=== PATIENT | male | born 1975 | race Caucasian/White ===

== ENCOUNTER 2023-01-25 11:26 | Inpatient (IN) ==
[2023-01-25 12:40] LABS: Basophils # (auto) 0.04 K/uL (0-0.2); Basophils % (auto) 0.6 %; Eosinophils # (auto) 0.02 K/uL (0-0.50); Eosinophils % (auto) 0.3 %; Hematocrit (blood only) 48.7 % (42.0-52.0); Hemoglobin 17.5 g/dl (14.0-18.0); Immature Granulocytes # (auto) 0.03 K/uL (0.01-0.20); Immature Granulocytes % (auto) 0.5 %; Lymphocytes % (auto) 22.4 %; Mean Corpuscular Hemoglobin 32.8 pg (25.0-34.0); Mean Corpuscular Hgb Conc 35.9 g/dL (32.0-36.0); Mean Corpuscular Volume 91.2 fL (80.0-100.0); Mean Platelet Volume 9.3 fL (9.4-12.4); Monocytes # (auto) 1.92 K/uL (0.11-0.59); Monocytes % (auto) 30.7 %; Neutrophils # (auto) 2.84 K/uL (1.40-6.50); Neutrophils % (auto) 45.5 %; Platelet Count 355 K/uL (130-400); RDW Coefficient of Variation 11.9 % (11.5-14.5); Red Blood Count 5.34 M/uL (4.70-6.10); White Blood Count 6.25 K/ul (4.8-10.8)
[2023-01-25 13:14] LABS: Albumin Globulin Ratio 1.2 (0.9-2); Albumin Level 4.1 gm/dl (3.4-5.0); BUN Creatinine Ratio 13.8 (10-20); Bilirubin,Total 0.9 mg/dl (0.2-1.0); Calcium 10.3 mg/dl (8.6-10.3); Creatinine Clr Calc Pharmacy 78.4 ml/min; Est GFR (African American) 94.5 ml/min; Est GFR (Non-African American) 81.5 ml/min; Globulin 3.3 gm/dl (2.5-4.0); Potassium 2.7 mmol/L (3.5-5.1); Total Protein 7.4 gm/dl (6.0-8.3)
[2023-01-25 13:15] LABS: Lyme Ab IgG w/WB Rflx Negative (Negative); Lyme Ab IgM w/WB Rflx Negative (Negative)
--- NOTE | 2023-01-25 13:33 | Electrocardiogram Report ---
Test Reason : Blood Pressure : / mmHG Vent. Rate : 103 BPM Atrial Rate : 103 BPM P-R Int : 144 ms QRS Dur : 098 ms QT Int : 358 ms P-R-T Axes : 079 072 -61 degrees QTc Int : 468 ms Poor data quality, interpretation may be adversely affected Sinus tachycardia Right atrial enlargement Abnormal ECG No previous ECGs available Confirmed by Adrien Hankins ([id number]) on 01/25/2023 1:32:55 PM Referred By: Confirmed By:Adrien Hankins
[2023-01-25] MEDS ORDERED: SODIUM CHLORIDE 0.9% 1000ML 1,000 ML IV ONE (14:56)
[2023-01-25] MEDS ORDERED: POTASSIUM CHLORIDE CRTAB 20 MEQ TABCR PO STA (15:02)
--- NOTE | 2023-01-25 15:11 | Emergency Department Note ---
Impression & Plan Rhabdomyolysis ADMIT ED Provider Note HPI: The patient is a 47-year-old gentleman who presents emergency department with multiple issues. Patient states he has had some dizziness, states it is relatively constant over the past several days with positional changes. Patient also states that he has had some muscle spasms/cramps in the posterior aspect of both eyes, right greater than left. Patient denies any chest pain or shortness of breath, states that he had a recent GI illness that was associate with some nausea and vomiting and diarrhea last week, his symptoms resolved. He went to see a physician through [facility] in [place], he had lab work done and was ultimately discharged following his outpatient visit. He was called today and told to come to the ER because he had "lab abnormalities". On arrival here to the ED the patient is mildly tachycardic but otherwise in no acute distress. He complains of some generalized sensation of dizziness and some muscle cramps in his posterior legs. Patient denies any recent fever, denies any headache, denies any chest pain or shortness of breath. Patient is afebrile on arrival. Saturating well on room air. ROS: - Per HPI *Outpatient medications and allergy history reviewed. *Pertinent external medical records reviewed. PE: General: Alert, thin build, no acute distress HEENT: Normocephalic, trachea midline Eyes: Extraocular eye movement is intact, no scleral erythema Pulmonary: Clear to auscultation bilaterally, no wheezing Cardio: Regular rate and rhythm GI: Abdomen is soft to palpation : No suprapubic tenderness MSK: No evidence of trauma or malformation of the extremities, no edema Skin: No evidence of rash Neuro: Alert, no focal deficits Psychiatric: Cooperative prize fighter: (As interpreted by myself): - An order was placed for continuous cardiac monitoring - Patient was noted to be in sinus rhythm with a rate of 90 EKG: (As interpreted by myself): Rate: 103 Rhythm: Sinus tachycardia Intervals: Within normal limits ST changes: No ST elevation Time: 1222 Interventions provided in ED: -IV fluid bolus, IV potassium repletion Differential Diagnosis: Posterior circulation stroke, peripheral vertigo, rhabdomyolysis, tickborne illness, viral hepatitis, alcohol induced hepatitis, malnutrition secondary to history of alcohol abuse, amongst other potential pathologies. Medical Decision Making: Patient presented to the emergency department with a chief complaint of multiple symptoms that have been acute and bothersome of recent past. Patient states he has had some dizziness with positional changes, states he has bilateral myalgias in his legs. Denies any recent strenuous physical activity. Patient states he recently did have a GI illness as well. On arrival here to the ED the patient is hemodynamically stable. He states he was contacted in regards to some lab work he had done yesterday at the [facility] location and was told to come to the emergency department to be assessed. Upon review of outpatient lab work patient had a transaminitis and hyponatremia yesterday. On arrival here today his lab work shows similar changes with AST in the 500s, ALT 181, creatinine kinase was added given the patient's myalgias in the bilateral lower extremities and total CK level is elevated at 35,902, troponin also slightly elevated at 22.3. EKG does not show any ST elevation, there are some mild depressions in the lateral leads however patient denies any chest pain or shortness of breath. Low suspicion for ACS at this time. Patient CBC shows no evidence of leukocytosis, hemoglobin is stable, BMP otherwise shows evidence of a metabolic alkalosis, potassium low at 2.7, sodium slightly low 131 and chloride low at 80. Lyme testing and Anaplasma testing are negative. Alcohol level is negative. CT imaging of the head was obtained given the patient's complaint of dizziness, this does not show any acute intracranial process. CT imaging of the abdomen pelvis does not show any evidence of acute surgical abnormality. Possible cystitis however urinalysis does not show evidence of infection. Given the patient's multiple lab abnormalities he was aggressively fluid resuscitated with 3 L of normal saline, also given potassium repletion. I did recommend admission and patient is in agreement. Case was discussed with the on-call hospitalist for [facility], Dr. Atkins, patient was placed for admission in stable condition. Consultants: Hospitalist service, Dr. Atkins Disposition discussion held by myself with: Patient and family member at the bedside Diagnosis: 1. Acute rhabdomyolysis 2. Transaminitis 3. Elevated troponin 4. Hypokalemia 5. Hyponatremia 6. Hypochloremia 7. Metabolic alkalosis Disposition: Admission Aaron Alexandra, DO Emergency Medicine Past Med/Surg History Social History Smoking Status: Current some day smoker Preferred Language: Georgian Feels Safe at Home: Yes Allergies Allergies Allergy/AdvReac Type Severity Reaction Status Date / Time No Known Allergies Allergy Verified 01/25/23 16:49 Home Meds Home Medications Medication Instructions Recorded Confirmed meclizine 25 mg tablet 25 mg PO Q8H PRN Dizziness 01/25/23 01/25/23 Results & Data (ED) Vital Signs Vital Signs - 24 hr 01/25/23 11:46 01/25/23 15:48 01/25/23 14:31 Temperature 36.6 C Temperature Source Temporal Artery Scan Pulse Rate 112 H 90 Pulse Rate from SpO2 Sensor Respiratory Rate 18 Blood Pressure 111/80 137/84 Blood Pressure Mean 90 101 Pulse Oximetry 98 Sepsis Recent Fever Within 48 Hours No Sepsis New/Unexplained Change in Mental Status N/A Sepsis Action Taken by Nursing No Action Required 01/25/23 14:31 01/25/23 15:00 01/25/23 15:00 Temperature Temperature Source Pulse Rate 98 H 96 H Pulse Rate from SpO2 Sensor 97 H 95 H Respiratory Rate 18 15 Blood Pressure 133/97 Blood Pressure Mean 109 Pulse Oximetry 99 98 Sepsis Recent Fever Within 48 Hours Sepsis New/Unexplained Change in Mental Status Sepsis Action Taken by Nursing 01/25/23 15:30 01/25/23 15:30 01/25/23 16:00 Temperature Temperature Source Pulse Rate 91 H Pulse Rate from SpO2 Sensor Respiratory Rate 19 Blood Pressure 130/99 123/97 Blood Pressure Mean 109 105 Pulse Oximetry Sepsis Recent Fever Within 48 Hours Sepsis New/Unexplained Change in Mental Status Sepsis Action Taken by Nursing 01/25/23 16:00 01/25/23 16:30 Temperature Temperature Source Pulse Rate 93 H 85 Pulse Rate from SpO2 Sensor Respiratory Rate 13 22 Blood Pressure Blood Pressure Mean Pulse Oximetry Sepsis Recent Fever Within 48 Hours Sepsis New/Unexplained Change in Mental Status Sepsis Action Taken by Nursing Laboratory Data 01/25/23 12:20 01/25/23 12:20 Lab Results 01/25/23 01/25/23 01/25/23 Range/Units 12:20 12:20 12:20 WBC 6.25 (4.8-10.8) K/ul RBC 5.34 (4.70-6.10) M/uL Hgb 17.5 (14.0-18.0) g/dl Hct 48.7 (42.0-52.0) % MCV 91.2 (80.0-100.0) fL MCH 32.8 (25.0-34.0) pg MCHC 35.9 (32.0-36.0) g/dL RDW Std Deviation 40.0 (36.4-46.3) fL RDW Coeff of Dede 11.9 (11.5-14.5) % Plt Count 355 (130-400) K/uL MPV 9.3 L (9.4-12.4) fL Immature Gran % (Auto) 0.5 % Neut % (Auto) 45.5 % Lymph % (Auto) 22.4 % Canadian % (Auto) 30.7 % Eos % (Auto) 0.3 % Baso % (Auto) 0.6 % Neut # (Auto) 2.84 (1.40-6.50) K/uL Lymph # (Auto) 1.40 (1.2-3.4) K/uL Canadian # (Auto) 1.92 H (0.11-0.59) K/uL Eos # (Auto) 0.02 (0-0.50) K/uL Baso # (Auto) 0.04 (0-0.2) K/uL Immature Gran # (Auto) 0.03 (0.01-0.20) K/uL VBG pH (7.36-7.41) VBG pCO2 (38-50) mmHg VBG pO2 mmHg VBG HCO3 mmol/L VBG O2 Saturation % VBG Base Excess mEq/L Sodium 131 L (136-145) mmol/L Potassium 2.7 L (3.5-5.1) mmol/L Chloride 80 L (98-107) mmol/L Carbon Dioxide 41 H* (21-32) mmol/L Anion Gap 10 (3-11) BUN 15 (6-23) mg/dl Creatinine 1.09 (0.6-1.4) mg/dl Est Cr Clr Drug Dosing 78.4 ml/min Est GFR ( Amer) 94.5 ml/min Est GFR (Non-Af Amer) 81.5 ml/min BUN/Creatinine Ratio 13.8 (10-20) Glucose 112 H (70-99(Fasting)) mg/dl Lactate (0.4-2.0) mmol/L Calcium 10.3 (8.6-10.3) mg/dl Magnesium (1.7-2.4) mg/dl Total Bilirubin 0.9 (0.2-1.0) mg/dl AST 548 H (13-39) U/L ALT 181 H (7-52) U/L Alkaline Phosphatase 74 (34-104) U/L Total Creatine Kinase (30-223) U/L Troponin I High Sens (0-20) pg/ml Total Protein 7.4 (6.0-8.3) gm/dl Albumin 4.1 (3.4-5.0) gm/dl Globulin 3.3 (2.5-4.0) gm/dl Albumin/Globulin Ratio 1.2 (0.9-2) Urine Color Urine Appearance (Clear) Urine pH (4.5-7.5) Ur Specific [place] (1.000-1.030) Urine Protein (Negative) Urine Glucose (UA) (Negative) Urine Ketones (Negative) Urine Blood (Negative) Urine Nitrite (Negative) Urine Bilirubin (Negative) Urine Urobilinogen (Negative) Ur Leukocyte Esterase (Negative) Urine WBC (Auto) (0-5) /hpf Urine RBC (Auto) (0-4) /hpf U Hyaline Cast (Auto) (0-5) /lpf U Epithel Cells (Auto) (0-5) /lpf Urine Bacteria (Auto) (Negative) Ethyl Alcohol mg/dL (<10.0) mg/dl Anaplasma Smear Babesia Smear Lyme Disease IgG Ab Negative (Negative) Lyme Disease IgM Ab Negative (Negative) 01/25/23 01/25/23 01/25/23 Range/Units 14:56 15:01 15:01 WBC (4.8-10.8) K/ul RBC (4.70-6.10) M/uL Hgb (14.0-18.0) g/dl Hct (42.0-52.0) % MCV (80.0-100.0) fL MCH (25.0-34.0) pg MCHC (32.0-36.0) g/dL RDW Std Deviation (36.4-46.3) fL RDW Coeff of Dede (11.5-14.5) % Plt Count (130-400) K/uL MPV (9.4-12.4) fL Immature Gran % (Auto) % Neut % (Auto) % Lymph % (Auto) % Canadian % (Auto) % Eos % (Auto) % Baso % (Auto) % Neut # (Auto) (1.40-6.50) K/uL Lymph # (Auto) (1.2-3.4) K/uL Canadian # (Auto) (0.11-0.59) K/uL Eos # (Auto) (0-0.50) K/uL Baso # (Auto) (0-0.2) K/uL Immature Gran # (Auto) (0.01-0.20) K/uL VBG pH 7.49 H (7.36-7.41) VBG pCO2 62 H (38-50) mmHg VBG pO2 13 mmHg VBG HCO3 47 mmol/L VBG O2 Saturation < 60.0 % VBG Base Excess 20.1 mEq/L Sodium (136-145) mmol/L Potassium (3.5-5.1) mmol/L Chloride (98-107) mmol/L Carbon Dioxide (21-32) mmol/L Anion Gap (3-11) BUN (6-23) mg/dl Creatinine (0.6-1.4) mg/dl Est Cr Clr Drug Dosing ml/min Est GFR ( Amer) ml/min Est GFR (Non-Af Amer) ml/min BUN/Creatinine Ratio (10-20) Glucose (70-99(Fasting)) mg/dl Lactate 1.9 (0.4-2.0) mmol/L Calcium (8.6-10.3) mg/dl Magnesium 2.4 (1.7-2.4) mg/dl Total Bilirubin (0.2-1.0) mg/dl AST (13-39) U/L ALT (7-52) U/L Alkaline Phosphatase (34-104) U/L Total Creatine Kinase 77582 H (30-223) U/L Troponin I High Sens 22.3 H (0-20) pg/ml Total Protein (6.0-8.3) gm/dl Albumin (3.4-5.0) gm/dl Globulin (2.5-4.0) gm/dl Albumin/Globulin Ratio (0.9-2) Urine Color Urine Appearance (Clear) Urine pH (4.5-7.5) Ur Specific [place] (1.000-1.030) Urine Protein (Negative) Urine Glucose (UA) (Negative) Urine Ketones (Negative) Urine Blood (Negative) Urine Nitrite (Negative) Urine Bilirubin (Negative) Urine Urobilinogen (Negative) Ur Leukocyte Esterase (Negative) Urine WBC (Auto) (0-5) /hpf Urine RBC (Auto) (0-4) /hpf U Hyaline Cast (Auto) (0-5) /lpf U Epithel Cells (Auto) (0-5) /lpf Urine Bacteria (Auto) (Negative) Ethyl Alcohol mg/dL (<10.0) mg/dl Anaplasma Smear Babesia Smear Lyme Disease IgG Ab (Negative) Lyme Disease IgM Ab (Negative) 01/25/23 01/25/23 01/25/23 Range/Units 15:01 15:01 15:01 WBC (4.8-10.8) K/ul RBC (4.70-6.10) M/uL Hgb (14.0-18.0) g/dl Hct (42.0-52.0) % MCV (80.0-100.0) fL MCH (25.0-34.0) pg MCHC (32.0-36.0) g/dL RDW Std Deviation (36.4-46.3) fL RDW Coeff of Dede (11.5-14.5) % Plt Count (130-400) K/uL MPV (9.4-12.4) fL Immature Gran % (Auto) % Neut % (Auto) % Lymph % (Auto) % Canadian % (Auto) % Eos % (Auto) % Baso % (Auto) % Neut # (Auto) (1.40-6.50) K/uL Lymph # (Auto) (1.2-3.4) K/uL Canadian # (Auto) (0.11-0.59) K/uL Eos # (Auto) (0-0.50) K/uL Baso # (Auto) (0-0.2) K/uL Immature Gran # (Auto) (0.01-0.20) K/uL VBG pH (7.36-7.41) VBG pCO2 (38-50) mmHg VBG pO2 mmHg VBG HCO3 mmol/L VBG O2 Saturation % VBG Base Excess mEq/L Sodium (136-145) mmol/L Potassium (3.5-5.1) mmol/L Chloride (98-107) mmol/L Carbon Dioxide (21-32) mmol/L Anion Gap (3-11) BUN (6-23) mg/dl Creatinine (0.6-1.4) mg/dl Est Cr Clr Drug Dosing ml/min Est GFR ( Amer) ml/min Est GFR (Non-Af Amer) ml/min BUN/Creatinine Ratio (10-20) Glucose (70-99(Fasting)) mg/dl Lactate (0.4-2.0) mmol/L Calcium (8.6-10.3) mg/dl Magnesium (1.7-2.4) mg/dl Total Bilirubin (0.2-1.0) mg/dl AST (13-39) U/L ALT (7-52) U/L Alkaline Phosphatase (34-104) U/L Total Creatine Kinase (30-223) U/L Troponin I High Sens (0-20) pg/ml Total Protein (6.0-8.3) gm/dl Albumin (3.4-5.0) gm/dl Globulin (2.5-4.0) gm/dl Albumin/Globulin Ratio (0.9-2) Urine Color Urine Appearance (Clear) Urine pH (4.5-7.5) Ur Specific [place] (1.000-1.030) Urine Protein (Negative) Urine Glucose (UA) (Negative) Urine Ketones (Negative) Urine Blood (Negative) Urine Nitrite (Negative) Urine Bilirubin (Negative) Urine Urobilinogen (Negative) Ur Leukocyte Esterase (Negative) Urine WBC (Auto) (0-5) /hpf Urine RBC (Auto) (0-4) /hpf U Hyaline Cast (Auto) (0-5) /lpf U Epithel Cells (Auto) (0-5) /lpf Urine Bacteria (Auto) (Negative) Ethyl Alcohol mg/dL < 10.0 (<10.0) mg/dl Anaplasma Smear See Comment Cancelled Babesia Smear See Comment Lyme Disease IgG Ab (Negative) Lyme Disease IgM Ab (Negative) 01/25/23 Range/Units 16:25 WBC (4.8-10.8) K/ul RBC (4.70-6.10) M/uL Hgb (14.0-18.0) g/dl Hct (42.0-52.0) % MCV (80.0-100.0) fL MCH (25.0-34.0) pg MCHC (32.0-36.0) g/dL RDW Std Deviation (36.4-46.3) fL RDW Coeff of Dede (11.5-14.5) % Plt Count (130-400) K/uL MPV (9.4-12.4) fL Immature Gran % (Auto) % Neut % (Auto) % Lymph % (Auto) % Canadian % (Auto) % Eos % (Auto) % Baso % (Auto) % Neut # (Auto) (1.40-6.50) K/uL Lymph # (Auto) (1.2-3.4) K/uL Canadian # (Auto) (0.11-0.59) K/uL Eos # (Auto) (0-0.50) K/uL Baso # (Auto) (0-0.2) K/uL Immature Gran # (Auto) (0.01-0.20) K/uL VBG pH (7.36-7.41) VBG pCO2 (38-50) mmHg VBG pO2 mmHg VBG HCO3 mmol/L VBG O2 Saturation % VBG Base Excess mEq/L Sodium (136-145) mmol/L Potassium (3.5-5.1) mmol/L Chloride (98-107) mmol/L Carbon Dioxide (21-32) mmol/L Anion Gap (3-11) BUN (6-23) mg/dl Creatinine (0.6-1.4) mg/dl Est Cr Clr Drug Dosing ml/min Est GFR ( Amer) ml/min Est GFR (Non-Af Amer) ml/min BUN/Creatinine Ratio (10-20) Glucose (70-99(Fasting)) mg/dl Lactate (0.4-2.0) mmol/L Calcium (8.6-10.3) mg/dl Magnesium (1.7-2.4) mg/dl Total Bilirubin (0.2-1.0) mg/dl AST (13-39) U/L ALT (7-52) U/L Alkaline Phosphatase (34-104) U/L Total Creatine Kinase (30-223) U/L Troponin I High Sens (0-20) pg/ml Total Protein (6.0-8.3) gm/dl Albumin (3.4-5.0) gm/dl Globulin (2.5-4.0) gm/dl Albumin/Globulin Ratio (0.9-2) Urine Color Yellow Urine Appearance Clear (Clear) Urine pH 7.0 (4.5-7.5) Ur Specific [place] 1.029 (1.000-1.030) Urine Protein 1+ H (Negative) Urine Glucose (UA) Negative (Negative) Urine Ketones Negative (Negative) Urine Blood 1+ H (Negative) Urine Nitrite Negative (Negative) Urine Bilirubin Negative (Negative) Urine Urobilinogen Negative (Negative) Ur Leukocyte Esterase Negative (Negative) Urine WBC (Auto) 1-5 (0-5) /hpf Urine RBC (Auto) 0-4 (0-4) /hpf U Hyaline Cast (Auto) 1-5 (0-5) /lpf U Epithel Cells (Auto) 10-20 H (0-5) /lpf Urine Bacteria (Auto) Negative (Negative) Ethyl Alcohol mg/dL (<10.0) mg/dl Anaplasma Smear Babesia Smear Lyme Disease IgG Ab (Negative) Lyme Disease IgM Ab (Negative) Administered Medications Discontinued Medications Sodium Chloride (Nss 1000ml) 1,000 mls @ 999 mls/hr IV .Q1H1M ONE Stop: 01/25/23 15:56 Last Admin: 01/25/23 15:14 Dose: 999 mls/hr Documented By: NAHUN Potassium Chloride (K Jean / Wtr) 10 meq in 100 mls @ 100 mls/hr IV Q1H THIERNO; Protocol Stop: 01/25/23 17:14 Last Admin: 01/25/23 16:39 Dose: 100 mls/hr Documented By: Infusion: 01/25/23 16:14 Dose: 100 mls/hr Documented By: Admin: 01/25/23 15:14 Dose: 100 mls/hr Documented By: NAHUN Ioversol (Optiray 350 100ml) 86 ml IV ONCE ONE Stop: 01/25/23 16:16 Last Admin: 01/25/23 16:15 Dose: 86 ml Documented By: HELEN Potassium Chloride (Potassium Chloride Crtab 20 Meq Tabcr) 40 meq PO NOW STA Stop: 01/25/23 15:03 Last Admin: 01/25/23 15:14 Dose: 40 meq Documented By: JY Imaging Data Radiologist's Impression: Chest X-Ray 01/25/23 14:55 XR chest 1V portable CLINICAL HISTORY: weakness TECHNIQUE: Single frontal radiograph of the chest was obtained. Comparison: None available at the time of this dictation. FINDINGS: No lines and tubes are seen. The cardiomediastinal silhouette is normal. The lungs are clear. No evidence of pleural effusion or pneumothorax. IMPRESSION: No acute chest disease. ACT 112: Negative or not required by law. Electronically signed by: Juve Porter M.D. 01/25/2023 3:[address] 01/25/23 14:[address] DOSE: 729.78 mGycm HISTORY: dizzy TECHNIQUE: Multiaxial CT images of the head were performed without the use of intravenous contrast. Automated exposure control was utilized for this study. A dose lowering technique was utilized adhering to the principles of ALARA. Comparison: None. Findings: The paranasal sinuses and mastoid air cells are clear. The calvarium and skull base are intact. The ventricles and sulci are within normal limits. There is no mass, hematoma, midline shift, or acute infarct. Impression: No acute intracranial abnormality. ACT 112: Negative or not required by law. Electronically signed by: Fernando Montoya M.D. 01/25/2023 4:20 PM Abdomen/Pelvis CT 01/25/23 15:07 CT abd pelvis IV con only CLINICAL HISTORY: transaminitis, recent N/V TECHNIQUE: Helical axial images of the abdomen and pelvis were obtained and displayed. Automated dose lowering techniques and/or adjustment according to patient size were utilized for this exam. This exam was performed with intravenous contrast. CT DOSE: 511.13 mGycm COMPARISON: None available at the time of this dictation. FINDINGS: Lower chest: No acute abnormality. Liver: Unremarkable. No focal lesions are seen. Gallbladder and biliary tree: No calcified gallstones. Normal caliber wall. There may be a gallbladder polyp measuring approximately 4 mm. No intra- or extrahepatic biliary ductal dilation. Pancreas: Unremarkable, no focal lesions. Spleen: Unremarkable. Adrenals: Unremarkable. Kidneys and ureters: Unremarkable. Bladder: Diffuse homogeneous wall thickening is seen. Reproductive organs: Unremarkable. Bowel: The appendix is normal. Lymph nodes Retroperitoneal: Unremarkable. Pelvic: Unremarkable. Mesenteric: Unremarkable. Peritoneum: Normal. Vessels: Atherosclerotic calcifications are seen. Abdominal wall: Unremarkable. Bones: Mild degenerative changes are seen. IMPRESSION: Diffuse thickening of the bladder wall is nonspecific, however correlation with urinalysis is recommended to exclude UTI. Otherwise no acute abnormalities are seen. ACT 112: Negative or not required by law. Electronically signed by: Juve Porter M.D. 01/25/2023 4:25 PM Discharge Plan Visit Data Chief Complaint: Abnormal Labs/Diagnostic Testing Stated Complaint: ABNORMAL BLOODWORK, REFERRED BY DOCTOR ED Provider: Aaron Alexandra ED Midlevel Provider: [place] Discharge Problem: Rhabdomyolysis Forms Stand Alone Forms: [employer] Prescriptions Prescriptions: No Action meclizine 25 mg Tablet 25 mg PO Q8H PRN (Reason: Dizziness) Referrals Referrals: Debra Figueredo MD [Primary Care Provider] - Rhabdomyolysis Qualifiers: Rhabdomyolysis type: non-traumatic Qualified Code(s): M62.82 - Rhabdomyolysis
[2023-01-25] MEDS: POTASSIUM CHLORIDE / WTR 10 MEQ/100 ML PLCT IV SCH ×4 (15:14→23:53)
[2023-01-25 15:15] LABS: Base Excess VBG 20.1 mEq/L; HCO3 VBG 47 mmol/L; Oxygen Saturation VBG < 60.0 %; PCO2 VBG 62 mmHg (38-50); PO2 VBG 13 mmHg; pH VBG 7.49 (7.36-7.41)
--- NOTE | 2023-01-25 15:31 | XRay Report ---
XR chest 1V portable CLINICAL HISTORY: weakness TECHNIQUE: Single frontal radiograph of the chest was obtained. Comparison: None available at the time of this dictation. FINDINGS: No lines and tubes are seen. The cardiomediastinal silhouette is normal. The lungs are clear. No evid ence of pleural effusion or pneumothorax. IMPRESSION: No acute chest disease. ACT 112: Negative or not required by law. Electronically signed by: Juve Porter M.D. 01/25/2023 3:29 PM
[2023-01-25 15:42] LABS: Troponin I High Sensitivity 22.3 pg/ml (0-20)
[2023-01-25 15:49] LABS: Magnesium 2.4 mg/dl (1.7-2.4)
--- NOTE | 2023-01-25 16:01 | Communication Note ---
Date of Service: January 25, 2023 Resident attestation for ED patient. I saw this patient today and discussed my findings w/ Dr. Alexandra who has examined the patient independently. Please see his documentation.
[2023-01-25] MEDS ORDERED: OPTIRAY 350 100ml IV ONE (16:15)
--- NOTE | 2023-01-25 16:21 | CT Scan Report ---
HEAD CT NONCONTRAST CT DOSE: 729.78 mGycm HISTORY: dizzy TECHNIQUE: Multiaxial CT images of the head were performed without the use of intravenous contrast. A utomated exposure control was utilized for this study. A dose lowering technique was utilized adheri ng to the principles of ALARA. Comparison: None. Findings: The paranasal sinuses and mastoid air cells are clear. The calvarium and skull base are int act. The ventricles and sulci are within normal limits. There is no mass, hematoma, midline shift, or acute infarct. Impression: No acute intracranial abnormality. ACT 112: Negative or not required by law. Electronically signed by: Fernando Montoya M.D. 01/25/2023 4:20 PM
--- NOTE | 2023-01-25 16:27 | CT Scan Report ---
CT abd pelvis IV con only CLINICAL HISTORY: transaminitis, recent N/V TECHNIQUE: Helical axial images of the abdomen and pelvis were obtained and displayed. Automated dose lowering techniques and/or adjustment according to patient size were utilized for this exam. This e xam was performed with intravenous contrast. CT DOSE: 511.13 mGycm COMPARISON: None available at the time of this dictation. FINDINGS: Lower chest: No acute abnormality. Liver: Unremarkable. No focal lesions are seen. Gallbladder and biliary tree: No calcified gallstones. Normal caliber wall. There may be a gallbladde r polyp measuring approximately 4 mm. No intra- or extrahepatic biliary ductal dilation. Pancreas: Unremarkable, no focal lesions. Spleen: Unremarkable. Adrenals: Unremarkable. Kidneys and ureters: Unremarkable. Bladder: Diffuse homogeneous wall thickening is seen. Reproductive organs: Unremarkable. Bowel: The appendix is normal. Lymph nodes Retroperitoneal: Unremarkable. Pelvic: Unremarkable. Mesenteric: Unremarkable. Peritoneum: Normal. Vessels: Atherosclerotic calcifications are seen. Abdominal wall: Unremarkable. Bones: Mild degenerative changes are seen. IMPRESSION: Diffuse thickening of the bladder wall is nonspecific, however correlation with urinalysis is recomme nded to exclude UTI. Otherwise no acute abnormalities are seen. ACT 112: Negative or not required by law. Electronically signed by: Juve Porter M.D. 01/25/2023 4:25 PM
[2023-01-25 16:50] LABS: Appearance Urine Clear (Clear); Bacteria Urine Automated Negative (Negative); Bilirubin Urine Negative (Negative); Blood Urine 1+ (Negative); Color Urine Yellow; Glucose Urine UA Negative (Negative); Ketones Urine Negative (Negative); Leukocyte Esterase Urine Negative (Negative); Nitrite Urine Negative (Negative); Protein Urine 1+ (Negative); RBC Urine Automated 0-4 /hpf (0-4); Specific Gravity Urine 1.029 (1.000-1.030); Urobilinogen Urine Negative (Negative)
[2023-01-25] MEDS ORDERED: SODIUM CHLORIDE 0.9% 1000ML 2,000 ML IV ONE (16:51)
[2023-01-25 17:58] LABS: Influenza A virus by PCR Negative (Neg); Influenza B virus by PCR Negative (Neg); RSV by PCR Negative (Neg); SARS CoV2 RNA(COVID-19) Ceph NEGATIVE (Negative)
--- NOTE | 2023-01-25 19:36 | History & Physical Report ---
Date of Service January 25, 2023 Assessment & Plan (1) Metabolic alkalosis: (2) Rhabdomyolysis: (3) Alcohol abuse: (4) Transaminitis: (5) Elevated troponin: (6) Dizziness: Plan Metabolic alkalosis with hx of N/V and diarrhea + Electrolytes abnormalities: -CT abd: Unremarkable but diffuse thickening of bladder wall ---- pt denied any urinary symptoms and neg UA -2/2 severe vomiting -pts Na+ is better than yesterday (it was 128) -pt received 2L of NS bolus - will keep pt on 150 cc NS/hr for now -will replete K+ -repeat CMP alex and admit to tele due to electrolytes abnormalities Rhabdomyolysis: -no exam no sign of any extremities swelling -likely 2/2 severe dehydration from GI symptoms + decrease PO intake + excess ETOH use -received IVF and will do maintenance fluids -repeat CK tomorrow AM ETOH abuse with Transaminitis: -normal ABd exam -no sign of pancreatitis on CT -will do ETOH withdrawal protocol ---- even though last intake per pt was 6 days ago -AST and ALT are better compared to yesterday lab ---AST: 827>548 and ALT: 207 > 181 -will trend LFTs -Tick borne disease panel neg -will get UDS and Hepatitis panel Elevated trop: -no prior hx of ND -EKG: sinus tachy, possible TWI on lead III, aVF, ---- will trend trop and EKG AM and Echo -no need for Cardiology consult at this time Dizziness: -worse with ambulation -normal neuro exam -likely 2/2 hypoNa+ and orthostatic hypotension -CT head: no acute finding -if symptoms do not improve with electrolytes correction and hydration then will consider MRI brain and neurology consult Diet: Clear liquid diet for now DVT PPx: Lovenox Code Status: FULL CODE Emergency Contact: Mother- Ana Paula [phone] History of Present Illness Chief Complaint: transaminitis Primary Care Provider: Debra Figueredo MD Pt is a 47 y/o M with hx of Alcohol abuse came to the ER with dizziness (with standing and walking), b/l thigh pain (with movement) for 3 days. Per pt he had severe episodes of nausea, vomiting, and diarrhea for 3 days which resolved 4 days ago. Per pt he has 20 episodes of vomiting (NBNB). At bedside: pt denied any abd pain, CP, SOB, blurry vision or PAIGE. Pt does drink 10 beers/day (on avg) and last drank 6 days ago. Pt uses marijuana infrequently but denied any other illicit drug use. Allergies Allergy/AdvReac Type Severity Reaction Status Date / Time No Known Allergies Allergy Verified 01/25/23 16:49 Home Medications Medication Instructions Recorded Confirmed Type meclizine 25 mg tablet 25 mg PO Q8H PRN Dizziness 01/25/23 01/25/23 History Past Med/Surg History Medical History Alcohol abuse Surgical History (Updated 01/25/23 @ 19:38 by Dmitry Atkins MD) H/O eye surgery Family History (Updated 01/25/23 @ 19:38 by Dmitry Atkins MD) Other Diabetes Hypertension Social History (Updated 01/25/23 @ 19:38 by Dmitry Atkins MD) Smoking Status: Current some day smoker Hx Alcohol Use: Yes Hx Substance Use: Yes Preferred Language: Turkmen Feels Safe at Home: Yes Review of Systems Review of Systems: At least 10 Review of systems were reviewed and all negative except as indicated in HPI Physical Exam Physical Exam: General:. NAD, well developed, well nourished, average body habitus HEENT:. Normocephalic and atraumatic, Normal Conjunctiva, EOMI, Sclera is non- icteric Lungs:. No signs of respiratory distress, CTA, no wheezing or crackles Heart:. Normal S1, S2, no murmur Abdominal:. ND, Soft, NT MSK:. No deformities of UE and LE, No leg edema Neuro: CN II-XII intact, normal motor strength, PERRLA Psych:. AAOx3, normal affect Results & Data Results & Data Vital Signs (Past 12 Hours) Vital Signs Temp Pulse Resp BP Pulse Ox 01/25/23 19:00 67 18 154/101 H 01/25/23 16:30 85 22 01/25/23 16:00 93 H 13 01/25/23 16:00 123/97 01/25/23 15:30 91 H 19 01/25/23 15:30 130/99 01/25/23 15:00 96 H 15 98 01/25/23 15:00 133/97 01/25/23 14:31 98 H 18 99 01/25/23 14:31 137/84 01/25/23 15:48 90 01/25/23 11:46 36.6 C 112 H 18 111/80 98 Laboratory Results Short CBC 01/25/23 Range/Units 12:20 WBC 6.25 (4.8-10.8) K/ul Hgb 17.5 (14.0-18.0) g/dl Hct 48.7 (42.0-52.0) % Plt Count 355 (130-400) K/uL BMP 01/25/23 12:20 Sodium 131 L Potassium 2.7 L Chloride 80 L Carbon Dioxide 41 H* BUN 15 Creatinine 1.09 Glucose 112 H Calcium 10.3 Cardiac Enzymes 01/25/23 Range/Units 15:01 Total Creatine Kinase 76134 H (30-223) U/L Liver Function 01/25/23 Range/Units 12:20 Total Bilirubin 0.9 (0.2-1.0) mg/dl AST 548 H (13-39) U/L ALT 181 H (7-52) U/L Alkaline Phosphatase 74 (34-104) U/L Albumin 4.1 (3.4-5.0) gm/dl Urine 01/25/23 Range/Units 16:25 Urine Color Yellow Urine Appearance Clear (Clear) Urine pH 7.0 (4.5-7.5) Ur Specific [place] 1.029 (1.000-1.030) Urine Protein 1+ H (Negative) Urine Glucose (UA) Negative (Negative) Diagnostic Findings Chest X-Ray 01/25/23 14:55 XR chest 1V portable CLINICAL HISTORY: weakness TECHNIQUE: Single frontal radiograph of the chest was obtained. Comparison: None available at the time of this dictation. FINDINGS: No lines and tubes are seen. The cardiomediastinal silhouette is normal. The lungs are clear. No evidence of pleural effusion or pneumothorax. IMPRESSION: No acute chest disease. ACT 112: Negative or not required by law. Electronically signed by: Juve Porter M.D. 01/25/2023 3:[address] 01/25/23 14:[address] DOSE: 729.78 mGycm HISTORY: dizzy TECHNIQUE: Multiaxial CT images of the head were performed without the use of intravenous contrast. Automated exposure control was utilized for this study. A dose lowering technique was utilized adhering to the principles of ALARA. Comparison: None. Findings: The paranasal sinuses and mastoid air cells are clear. The calvarium and skull base are intact. The ventricles and sulci are within normal limits. There is no mass, hematoma, midline shift, or acute infarct. Impression: No acute intracranial abnormality. ACT 112: Negative or not required by law. Electronically signed by: Fernando Montoya M.D. 01/25/2023 4:20 PM Abdomen/Pelvis CT 01/25/23 15:07 CT abd pelvis IV con only CLINICAL HISTORY: transaminitis, recent N/V TECHNIQUE: Helical axial images of the abdomen and pelvis were obtained and displayed. Automated dose lowering techniques and/or adjustment according to patient size were utilized for this exam. This exam was performed with intravenous contrast. CT DOSE: 511.13 mGycm COMPARISON: None available at the time of this dictation. FINDINGS: Lower chest: No acute abnormality. Liver: Unremarkable. No focal lesions are seen. Gallbladder and biliary tree: No calcified gallstones. Normal caliber wall. There may be a gallbladder polyp measuring approximately 4 mm. No intra- or extrahepatic biliary ductal dilation. Pancreas: Unremarkable, no focal lesions. Spleen: Unremarkable. Adrenals: Unremarkable. Kidneys and ureters: Unremarkable. Bladder: Diffuse homogeneous wall thickening is seen. Reproductive organs: Unremarkable. Bowel: The appendix is normal. Lymph nodes Retroperitoneal: Unremarkable. Pelvic: Unremarkable. Mesenteric: Unremarkable. Peritoneum: Normal. Vessels: Atherosclerotic calcifications are seen. Abdominal wall: Unremarkable. Bones: Mild degenerative changes are seen. IMPRESSION: Diffuse thickening of the bladder wall is nonspecific, however correlation with urinalysis is recommended to exclude UTI. Otherwise no acute abnormalities are seen. ACT 112: Negative or not required by law. Electronically signed by: Juve Porter M.D. 01/25/2023 4:25 PM Code Status & VTE Plan VTE Prophylaxis Plan VTE Prophylaxis will be ordered: Yes (2) Rhabdomyolysis Rhabdomyolysis type: non-traumatic Qualified Code(s): M62.82 - Rhabdomyolysis
[2023-01-25] MEDS ORDERED: GABAPENTIN 1200MG ALCOHOL WITHDRAWAL LOAD PO STA (20:55)
[2023-01-25] MEDS ORDERED: ONDANSETRON INJ 2 MG/ML 2 ML VIAL IV PRN (20:55)
[2023-01-25] MEDS ORDERED: GABAPENTIN 600 MG TAB PO ONE (20:55)
[2023-01-25] MEDS: ENOXAPARIN INJ 40 MG/0.4 ML SYR SQ SCH (22:35)
[2023-01-25] MEDS: SODIUM CHLORIDE 0.9% 1000ML 1,000 ML IV SCH (22:40)
[2023-01-25 23:51] LABS: Amphetamines+Metham, Urine Neg (Neg); Barbiturates, Urine Neg (Neg); Benzodiazepine, Urine Neg (Neg); Cocaine, Urine Neg (Neg); MDMA (Ecstacy), Urine Neg (Neg); Methadone, Urine Neg (Neg); Opiate, Urine Neg (Neg); Phencyclidine, Urine Neg (Neg)
[2023-01-26] MEDS: POTASSIUM CHLORIDE / WTR 10 MEQ/100 ML PLCT IV SCH ×4 (00:53→03:53)
[2023-01-26] MEDS: GABAPENTIN 600 MG TAB PO SCH ×2 (00:53→05:43)
[2023-01-26] MEDS: SODIUM CHLORIDE 0.9% 1000ML 1,000 ML IV SCH ×4 (02:50→22:32)
[2023-01-26 03:33] LABS: Basophils # (auto) 0.05 K/uL (0-0.2); Basophils % (auto) 0.9 %; Eosinophils # (auto) 0.06 K/uL (0-0.50); Eosinophils % (auto) 1.1 %; Hematocrit (blood only) 38.8 % (42.0-52.0); Hemoglobin 13.7 g/dl (14.0-18.0); Immature Granulocytes # (auto) 0.03 K/uL (0.01-0.20); Immature Granulocytes % (auto) 0.5 %; Lymphocytes # (auto) 1.68 K/uL (1.2-3.4); Lymphocytes % (auto) 30.2 %; Mean Corpuscular Hemoglobin 33.2 pg (25.0-34.0); Mean Corpuscular Hgb Conc 35.3 g/dL (32.0-36.0); Mean Corpuscular Volume 93.9 fL (80.0-100.0); Mean Platelet Volume 9.2 fL (9.4-12.4); Monocytes # (auto) 1.64 K/uL (0.11-0.59); Monocytes % (auto) 29.4 %; Neutrophils # (auto) 2.11 K/uL (1.40-6.50); Neutrophils % (auto) 37.9 %; Platelet Count 283 K/uL (130-400); RDW Standard Deviation 41.5 fL (36.4-46.3); Red Blood Count 4.13 M/uL (4.70-6.10); White Blood Count 5.57 K/ul (4.8-10.8)
[2023-01-26 03:49] LABS: Albumin Globulin Ratio 1.2 (0.9-2); BUN Creatinine Ratio 12.2 (10-20); Bilirubin,Total 0.6 mg/dl (0.2-1.0); Calcium 9.4 mg/dl (8.6-10.3); Creatinine Clr Calc Pharmacy 104.2 ml/min; Est GFR (African American) 123.8 ml/min; Est GFR (Non-African American) 106.8 ml/min; Globulin 2.5 gm/dl (2.5-4.0); Magnesium 1.9 mg/dl (1.7-2.4); Potassium 3.2 mmol/L (3.5-5.1); Total Protein 5.5 gm/dl (6.0-8.3)
[2023-01-26] MEDS: THIAMINE HCL 100 MG TAB PO SCH (07:31)
[2023-01-26] MEDS: FOLIC ACID 1 MG TAB PO SCH (07:32)
[2023-01-26 09:07] LABS: Estimated Average Glucose 94 mg/dl; Hemoglobin A1C 4.9 % (4.5-5.6)
[2023-01-26] MEDS: POTASSIUM CHLORIDE CRTAB 20 MEQ TABCR PO SCH ×2 (10:31→16:54)
[2023-01-26 11:29] LABS: Phosphorus 3.6 mg/dl (2.5-4.9)
[2023-01-26] MEDS ORDERED: GABAPENTIN 600 MG TAB PO SCH (13:15)
--- NOTE | 2023-01-26 15:01 | Hospitalist Progress Note ---
Date of Service January 26, 2023 Assessment & Plan (1) Metabolic alkalosis: (2) Rhabdomyolysis: (3) Alcohol abuse: (4) Transaminitis: (5) Elevated troponin: (6) Dizziness: Plan Rhabdomyolysis- improving 35K->26K. Continue IVF. Recheck in morning. Not on statins. UDS negative, alcohol negative. CT abdomen pelvis with no significant abnormality. Transaminitis-likely related to above. Improving with improvement in CK. Will monitor. Hepatitis panel pending, tickborne panel negative so far. N/V prior to admission-likely cannabis hyperemesis syndrome. Resolved. No further nausea or vomiting. Recommended to quit cannabis. Alcohol abuse-last drink was a week ago. No withdrawal symptoms. Discontinue gabapentin taper. Hypokalemia-replete. Recheck in a.m. Hyponatremia-mild, improving, recheck in a.m. Elevated troponin-minimal elevation, flat trend. Tele, echo and EKG reviewed. Orthostatic hypotension-resolved. Tele, echo and EKG reviewed. Diet: Advance to regular diet Disposition- Continue current IP management pending further improvement in CK. Tele reviewed- will discontinue tele. DVT PPx: Lovenox Updated mother Ana Paula at bedside. [phone] Admission and Anticipated Discharge Date Admission Date: January 25, 2023 Subjective Patient was seen and examined at bedside in presence of his mother. He feels much better since admission. No more dizziness or lightheadedness. Tolerating clears without issues and would like to advance diet. His pain is improved. No fever, chills, chest pain, shortness of breath, nausea or vomiting. He has been ambulating independently in the room without issues. Review of Systems Review of Systems: All systems reviewed & are unremarkable except as noted in Subjective Physical Exam Physical Exam: General: Sitting comfortably in bed, not in distress, on room air HEENT: EOMI, FAIZA, MMM Chest: Clear breath sounds bilaterally, no wheezes or crackles CVS: Regular rate and rhythm, normal heart sounds, no murmur Abdomen: Soft, non tender, not distended, normal bowel sounds Neuro: Awake, alert, oriented, conversing well, non focal Extremities: No cyanosis, clubbing or edema Results & Data Results & Data Vital Signs (Past 12 Hours) Vital Signs Temp Pulse Resp BP Pulse Ox O2 Del Method 01/26/23 11:23 36.7 C 79 20 157/92 H 97 Room Air 01/26/23 08:06 36.5 C 77 19 130/86 97 Room Air 01/26/23 02:57 36.7 C 76 18 119/75 96 Room Air Laboratory Results Short CBC 01/26/23 Range/Units 02:59 WBC 5.57 (4.8-10.8) K/ul Hgb 13.7 L D (14.0-18.0) g/dl Hct 38.8 L (42.0-52.0) % Plt Count 283 (130-400) K/uL BMP 01/26/23 02:59 Sodium 134 L Potassium 3.2 L Chloride 96 L Carbon Dioxide 37 H BUN 10 Creatinine 0.82 Glucose 105 H Calcium 9.4 Cardiac Enzymes 01/25/23 01/26/23 Range/Units 15:01 02:59 Total Creatine Kinase 64083 H 56490 H (30-223) U/L Liver Function 01/26/23 Range/Units 02:59 Total Bilirubin 0.6 (0.2-1.0) mg/dl AST 431 H (13-39) U/L ALT 141 H (7-52) U/L Alkaline Phosphatase 53 (34-104) U/L Albumin 3.0 L (3.4-5.0) gm/dl Urine 01/25/23 Range/Units 16:25 Urine Color Yellow Urine Appearance Clear (Clear) Urine pH 7.0 (4.5-7.5) Ur Specific [place] 1.029 (1.000-1.030) Urine Protein 1+ H (Negative) Urine Glucose (UA) Negative (Negative) Medications Administered Current Inpatient Medications Enoxaparin Sodium (Enoxaparin Inj 40 Mg/0.4 Ml Syr) 40 mg SQ Q24H THIERNO Stop: 02/24/23 20:54 Last Admin: 01/25/23 22:35 Dose: 40 mg Folic Acid (Folic Acid 1 Mg Tab) 1 mg PO QAM THIERNO Stop: 02/25/23 08:59 Last Admin: 01/26/23 07:32 Dose: 1 mg Sodium Chloride (Nss 1000ml) 1,000 mls @ 150 mls/hr IV .Q6H40M THIERNO Stop: 02/24/23 20:54 Last Admin: 01/26/23 09:35 Dose: 150 mls/hr Ondansetron HCl (Ondansetron Inj 2 Mg/Ml 2 Ml Vial) 4 mg IV Q6H PRN PRN Reason: Nausea Stop: 02/24/23 20:54 Potassium Chloride (Potassium Chloride Crtab 20 Meq Tabcr) 40 meq PO BID17 [facility] Stop: 02/25/23 10:14 Last Admin: 01/26/23 10:31 Dose: 40 meq Thiamine HCl (Thiamine Hcl 100 Mg Tab) 100 mg PO QAM [facility] Stop: 02/25/23 08:59 Last Admin: 01/26/23 07:31 Dose: 100 mg (2) Rhabdomyolysis Rhabdomyolysis type: non-traumatic Qualified Code(s): M62.82 - Rhabdomyolysis
--- NOTE | 2023-01-26 16:48 | Electrocardiogram Report ---
Test Reason : Blood Pressure : / mmHG Vent. Rate : 075 BPM Atrial Rate : 075 BPM P-R Int : 152 ms QRS Dur : 104 ms QT Int : 392 ms P-R-T Axes : 055 079 -16 degrees QTc Int : 437 ms Normal sinus rhythm T wave abnormality, consider inferior ischemia Abnormal ECG When compared with ECG of 25-JAN-2023 12:22, ST no longer depressed in Inferior leads Confirmed by Adrien Hankins ([id number]) on 01/26/2023 4:48:45 PM Referred By: Debra Figueredo Confirmed By:Adrien Hankins
[2023-01-26] MEDS: ENOXAPARIN INJ 40 MG/0.4 ML SYR SQ SCH (22:33)
[2023-01-27] MEDS: SODIUM CHLORIDE 0.9% 1000ML 1,000 ML IV SCH ×3 (05:11→19:26)
[2023-01-27 06:44] LABS: Hematocrit (blood only) 40.7 % (42.0-52.0); Hemoglobin 13.9 g/dl (14.0-18.0); Mean Corpuscular Hgb Conc 34.2 g/dL (32.0-36.0); Mean Corpuscular Volume 96.7 fL (80.0-100.0); Platelet Count 349 K/uL (130-400); RDW Coefficient of Variation 11.9 % (11.5-14.5); RDW Standard Deviation 42.5 fL (36.4-46.3); Red Blood Count 4.21 M/uL (4.70-6.10); White Blood Count 6.09 K/ul (4.8-10.8)
[2023-01-27 07:01] LABS: BUN Creatinine Ratio 11.8 (10-20); Calcium 8.5 mg/dl (8.6-10.3); Creatinine Clr Calc Pharmacy 138.7 ml/min; Est GFR (African American) 127.7 ml/min; Est GFR (Non-African American) 110.2 ml/min; Potassium 3.8 mmol/L (3.5-5.1)
[2023-01-27 07:04] LABS: Albumin Globulin Ratio 1.2 (0.9-2); Albumin Level 3.1 gm/dl (3.4-5.0); Bilirubin,Total 0.5 mg/dl (0.2-1.0); Globulin 2.6 gm/dl (2.5-4.0); Total Protein 5.7 gm/dl (6.0-8.3)
[2023-01-27] MEDS: POTASSIUM CHLORIDE CRTAB 20 MEQ TABCR PO SCH (08:41)
[2023-01-27] MEDS: FOLIC ACID 1 MG TAB PO SCH (08:41)
[2023-01-27] MEDS: THIAMINE HCL 100 MG TAB PO SCH (08:42)
[2023-01-27 10:53] LABS: HBSAG NON-REACTIVE (NON-REACTIVE); Hepatitis A Antibody IgM NON-REACTIVE (NON-REACTIVE); Hepatitis B Core Antibody IgM NON-REACTIVE (NON-REACTIVE)
--- NOTE | 2023-01-27 12:20 | Hospitalist Progress Note ---
Date of Service January 27, 2023 Assessment & Plan (1) Rhabdomyolysis: (2) Transaminitis: (3) Alcohol abuse: (4) Elevated troponin: Plan Rhabdomyolysis- improving 35K->26K->12K. Continue IVF. Recheck in morning. Not on statins. UDS negative, alcohol level negative. CT abdomen pelvis with no significant abnormality. Transaminitis-likely related to above. Improving with improvement in CK. Will monitor. Hepatitis panel pending, tickborne panel negative so far. N/V prior to admission-likely cannabis hyperemesis syndrome. Resolved. No further nausea or vomiting. Recommended to quit cannabis. Alcohol abuse-last drink was a week ago. No withdrawal symptoms. Discontinued gabapentin taper. Hypokalemia-resolved Hyponatremia-resolved. Elevated troponin-minimal elevation, flat trend. Tele, echo and EKG reviewed. Orthostatic hypotension-resolved. Disposition- Anticipate discharge in 1 to 2 days, pending further improvement in CK DVT PPx: Lovenox Admission and Anticipated Discharge Date Admission Date: January 25, 2023 Subjective Patient was seen and examined at bedside. He feels good. No new issues. Pain is minimal. No nausea, vomiting or chest pain or shortness of breath nausea or vomiting. Normal oral intake. Voiding without issues. Regular bowel movement. Review of Systems Review of Systems: All systems reviewed & are unremarkable except as noted in Subjective Physical Exam Physical Exam: General: Sitting comfortably in bed, not in distress, on room air HEENT: EOMI, FAIZA, MMM Chest: Clear breath sounds bilaterally, no wheezes or crackles CVS: Regular rate and rhythm, normal heart sounds, no murmur Abdomen: Soft, non tender, not distended, normal bowel sounds Neuro: Awake, alert, oriented, conversing well, non focal Extremities: No cyanosis, clubbing or edema Results & Data Results & Data Vital Signs (Past 12 Hours) Vital Signs Temp Pulse Resp BP Pulse Ox O2 Del Method 01/27/23 10:13 171/102 H 01/27/23 07:18 36.6 C 76 18 99 Room Air 01/27/23 00:15 36.7 C 88 16 151/102 H 100 Room Air Laboratory Results Short CBC 01/27/23 Range/Units 05:56 WBC 6.09 (4.8-10.8) K/ul Hgb 13.9 L (14.0-18.0) g/dl Hct 40.7 L (42.0-52.0) % Plt Count 349 (130-400) K/uL BMP 01/27/23 05:56 Sodium 140 Potassium 3.8 Chloride 105 Carbon Dioxide 31 BUN 9 Creatinine 0.76 Glucose 96 Calcium 8.5 L Cardiac Enzymes 01/27/23 Range/Units 05:56 Total Creatine Kinase 69545 H (30-223) U/L Liver Function 01/27/23 Range/Units 05:56 Total Bilirubin 0.5 (0.2-1.0) mg/dl AST 320 H (13-39) U/L ALT 131 H (7-52) U/L Alkaline Phosphatase 56 (34-104) U/L Albumin 3.1 L (3.4-5.0) gm/dl Medications Administered Current Inpatient Medications Enoxaparin Sodium (Enoxaparin Inj 40 Mg/0.4 Ml Syr) 40 mg SQ Q24H THIERNO Stop: 02/24/23 20:54 Last Admin: 01/26/23 22:33 Dose: 40 mg Folic Acid (Folic Acid 1 Mg Tab) 1 mg PO QAM THIERNO Stop: 02/25/23 08:59 Last Admin: 01/27/23 08:41 Dose: 1 mg Sodium Chloride (Nss 1000ml) 1,000 mls @ 150 mls/hr IV .Q6H40M THIERNO Stop: 02/24/23 20:54 Last Admin: 01/27/23 05:11 Dose: 150 mls/hr Ondansetron HCl (Ondansetron Inj 2 Mg/Ml 2 Ml Vial) 4 mg IV Q6H PRN PRN Reason: Nausea Stop: 02/24/23 20:54 Potassium Chloride (Potassium Chloride Crtab 20 Meq Tabcr) 40 meq PO DAILY THIERNO Stop: 02/26/23 08:59 Last Admin: 01/27/23 08:41 Dose: 40 meq Thiamine HCl (Thiamine Hcl 100 Mg Tab) 100 mg PO QAM THIERNO Stop: 02/25/23 08:59 Last Admin: 01/27/23 08:42 Dose: 100 mg (1) Rhabdomyolysis Rhabdomyolysis type: non-traumatic Qualified Code(s): M62.82 - Rhabdomyolysis
[2023-01-27] MEDS ORDERED: GABAPENTIN 600 MG TAB PO SCH (17:15)
[2023-01-27] MEDS: ENOXAPARIN INJ 40 MG/0.4 ML SYR SQ SCH (20:01)
[2023-01-28] MEDS: SODIUM CHLORIDE 0.9% 1000ML 1,000 ML IV SCH ×2 (02:23→08:30)
[2023-01-28 08:28] LABS: BUN Creatinine Ratio 8.2 (10-20); Calcium 8.9 mg/dl (8.6-10.3); Creatinine Clr Calc Pharmacy 144.4 ml/min; Est GFR (African American) 129.8 ml/min; Potassium 3.9 mmol/L (3.5-5.1)
[2023-01-28] MEDS: FOLIC ACID 1 MG TAB PO SCH (08:31)
[2023-01-28] MEDS: THIAMINE HCL 100 MG TAB PO SCH (08:31)
[2023-01-28] MEDS: POTASSIUM CHLORIDE CRTAB 20 MEQ TABCR PO SCH (08:31)
[2023-01-28 08:48] LABS: Albumin Globulin Ratio 1.3 (0.9-2); Albumin Level 3.3 gm/dl (3.4-5.0); Bilirubin,Total 0.8 mg/dl (0.2-1.0); Globulin 2.6 gm/dl (2.5-4.0); Total Protein 5.9 gm/dl (6.0-8.3)
--- NOTE | 2023-01-28 12:33 | Discharge Summary ---
Discharge Summary Date of Service January 28, 2023 Notes For Next Care Provider Patient was admitted with rhabdomyolysis with CK levels of 35,000. He was treated with IV fluids and CK levels trended downward. On day of discharge total CK was 4890. His AST was 198 and ALT was 113. He did have low potassium and sodium which resolved. He was admitted with nausea and vomiting and this was felt to be secondary to marijuana use. Encourage marijuana and alcohol cessation. Troponin mildly elevated on admission and remained flat. Echocardiogram showed EF 50 to 55%, mild concentric LVH and borderline aortic root dilatation. Medication Changes From Visit Recommend thiamine and folic acid supplements daily if drinking alcohol. Admission HPI Per Admitting Provider Pt is a 47 y/o M with hx of Alcohol abuse came to the ER with dizziness (with standing and walking), b/l thigh pain (with movement) for 3 days. Per pt he had severe episodes of nausea, vomiting, and diarrhea for 3 days which resolved 4 days ago. Per pt he has 20 episodes of vomiting (NBNB). At bedside: pt denied any abd pain, CP, SOB, blurry vision or PAIGE. Pt does drink 10 beers/day (on avg) and last drank 6 days ago. Pt uses marijuana infrequently but denied any other illicit drug use. Admission Exam Per Admitting Provider General:.NAD, well developed, well nourished, average body habitus HEENT:.Normocephalic and atraumatic, Normal Conjunctiva, EOMI, Sclera is non- icteric Lungs:.No signs of respiratory distress, CTA, no wheezing or crackles Heart:.Normal S1, S2, no murmur Abdominal:.ND, Soft, NT MSK:.No deformities of UE and LE, No leg edema Neuro: CN II-XII intact, normal motor strength, PERRLA Psych:.AAOx3, normal affect Principal Dx & Hospital Course #1 = Principal Diagnosis (1) Rhabdomyolysis: (2) Transaminitis: (3) Alcohol abuse: (4) Elevated troponin: Plan Rhabdomyolysis- improving 35K->26K->12K. Continue IVF. Recheck in morning. Not on statins. UDS negative, alcohol level negative. CT abdomen pelvis with no significant abnormality. Transaminitis-likely related to above. Improving with improvement in CK. Will monitor. Hepatitis panel pending, tickborne panel negative so far. N/V prior to admission-likely cannabis hyperemesis syndrome. Resolved. No further nausea or vomiting. Recommended to quit cannabis. Alcohol abuse-last drink was a week ago. No withdrawal symptoms. Discontinued gabapentin taper. Hypokalemia-resolved Hyponatremia-resolved. Elevated troponin-minimal elevation, flat trend. Tele, echo normal ef/borderline aortic root dilatation, mild LVH and EKG reviewed. Orthostatic hypotension-resolved. Disposition-discharge to home today, encourage fluid intake of 3-4L over next few days, will have repeat blood work 01/31 of CMP and CK and follow up with Dr. Atkins as outpatient. Discharge Exam Gen: WD/WN, NAD, A&O x3 HEENT: Normocephalic, atraumatic, conjunctivae moist, sclerae anicteric, mucous membranes moist. Lung: Clear to Auscultation bilaterally, no wheezes/rales/rhonchi Heart: Regular rate, regular rhythm, no murmurs, rubs, or gallops Abdomen: Soft, NT, ND +BS x 4 Extremities: No edema Skin: Warm, no rash, negative turgor. Updated Medication List Medication Instructions Recorded Confirmed Type meclizine 25 mg tablet 25 mg PO Q8H PRN Dizziness 01/25/23 01/25/23 History folic acid 1 mg tablet 1 mg PO QAM #30 tabs 01/28/23 Rx thiamine HCl (vitamin B1) 100 mg 100 mg PO QAM 30 days #30 tabs 01/28/23 Rx tablet Hospital Stay Data Consultations 01/25/23 17:03 ED Decision to Admit Stat Diagnostic Imagining Performed Chest X-Ray 01/25/23 14:55 XR chest 1V portable CLINICAL HISTORY: weakness TECHNIQUE: Single frontal radiograph of the chest was obtained. Comparison: None available at the time of this dictation. FINDINGS: No lines and tubes are seen. The cardiomediastinal silhouette is normal. The lungs are clear. No evidence of pleural effusion or pneumothorax. IMPRESSION: No acute chest disease. ACT 112: Negative or not required by law. Electronically signed by: Juve Porter M.D. 01/25/2023 3:[address] 01/25/23 14:[address] DOSE: 729.78 mGycm HISTORY: dizzy TECHNIQUE: Multiaxial CT images of the head were performed without the use of intravenous contrast. Automated exposure control was utilized for this study. A dose lowering technique was utilized adhering to the principles of ALARA. Comparison: None. Findings: The paranasal sinuses and mastoid air cells are clear. The calvarium and skull base are intact. The ventricles and sulci are within normal limits. There is no mass, hematoma, midline shift, or acute infarct. Impression: No acute intracranial abnormality. ACT 112: Negative or not required by law. Electronically signed by: Fernando Montoya M.D. 01/25/2023 4:20 PM Abdomen/Pelvis CT 01/25/23 15:07 CT abd pelvis IV con only CLINICAL HISTORY: transaminitis, recent N/V TECHNIQUE: Helical axial images of the abdomen and pelvis were obtained and displayed. Automated dose lowering techniques and/or adjustment according to patient size were utilized for this exam. This exam was performed with intravenous contrast. CT DOSE: 511.13 mGycm COMPARISON: None available at the time of this dictation. FINDINGS: Lower chest: No acute abnormality. Liver: Unremarkable. No focal lesions are seen. Gallbladder and biliary tree: No calcified gallstones. Normal caliber wall. There may be a gallbladder polyp measuring approximately 4 mm. No intra- or extrahepatic biliary ductal dilation. Pancreas: Unremarkable, no focal lesions. Spleen: Unremarkable. Adrenals: Unremarkable. Kidneys and ureters: Unremarkable. Bladder: Diffuse homogeneous wall thickening is seen. Reproductive organs: Unremarkable. Bowel: The appendix is normal. Lymph nodes Retroperitoneal: Unremarkable. Pelvic: Unremarkable. Mesenteric: Unremarkable. Peritoneum: Normal. Vessels: Atherosclerotic calcifications are seen. Abdominal wall: Unremarkable. Bones: Mild degenerative changes are seen. IMPRESSION: Diffuse thickening of the bladder wall is nonspecific, however correlation with urinalysis is recommended to exclude UTI. Otherwise no acute abnormalities are seen. ACT 112: Negative or not required by law. Electronically signed by: Juve Porter M.D. 01/25/2023 4:25 PM Pending Results Patient Have Any Pending Studies at Discharge: No Discharge Instructions Given to Patient (Per Discharging Provider) MEDICATION CHANGES: Folic acid 1 mg daily if consuming alcohol Thiamine 100 mg daily if consuming alcohol RECOMMENDATIONS FOR FOLLOW-UP: Please follow-up with primary care provider as scheduled. You need blood work, a CMP and CK level on 01/31/2023. Please go to [facility] lab and have this drawn. Encourage 3 L of water intake over the next 3 to 4 days and then can return to normal intake. Abstain from all alcohol. If consuming alcohol recommend daily vitamins and folic acid and thiamine. These can be purchased [id number]. You were admitted to hospital secondary to nausea and vomiting. It was felt this was likely secondary to marijuana use. You were also found to have elevated liver functions and rhabdomyolysis which is the elevation of muscle enzymes in the blood. You were treated with IV fluid and your muscle enzyme level and liver functions trended downward. You will need repeat blood work as outpatient. You also had low sodium and potassium which resolved. OTHER INSTRUCTIONS: Seek medical attention if you have: * temperature above 101 * chest pain or trouble breathing * abdominal pain, nausea, vomiting * diarrhea, dark stools or bloody stools * any unanswered questions or concerns Call 911 if symptoms are severe. Please take good care of yourself. It has been a pleasure taking care of you. Please take care of yourself. If you have any questions regarding your recent hospitalization please contact [facility] and request chago Johnson @ [phone]. Jane Amaya PA-C Total Time Total Time Spent Total Time Spent (In Minutes): 45 minutes Supervising Physician Co-Signing Physician Notes Patient was seen and examined with Jane BARRAZA at bedside. Chart reviewed. All labs, imaging reviewed. Case discussed with Jane and agree with the documentation above with regards to HPI, physical exam and assessment plan. In summary, this is a 47-year-old male was admitted with rhabdomyolysis, likely precipitated by intractable nausea vomiting and electrolyte abnormalities in setting of cannabis hyperemesis syndrome. Patient started on IV fluids and his CK has trended down nicely. He has had elevated LFTs and mild elevated troponin likely related to his rhabdomyolysis, doubt ACS. They have also trended down. His thigh pain has almost resolved. Hyponatremia, hypokalemia have resolved. Hepatitis panel is negative. Lyme negative. Tickborne panel negative so far. UDS negative. He consumes alcohol regularly but he did not have any withdrawal symptoms during the hospital stay as he was past the withdrawal window. He was given additional IVF today until prior to discharge and I believe his CK is at safe level for discharge home. Counseled on adequate oral hydration and repeat labs in the next 3 to 4 days and follow-up with his outpatient provider. Recommend to quit alcohol and cannabis. All questions were answered. He is comfortable and stable for discharge home.
[2023-01-29] MEDS ORDERED: GABAPENTIN 600 MG TAB PO SCH (05:15)
[2023-01-29 15:42] LABS: Babesia microti DNA Not Detected (Not Detected)
== END 2023-01-28 14:30 | disposition home or self-care (01) | DRG 558 ==
LOC: ED 11:26 → SUATTDRO 17:13 → 2N 17:13 → 3N 01-27 00:26

== ENCOUNTER 2023-03-21 14:12 | Inpatient (IN) ==
[2023-03-21 14:45] LABS: Basophils # (auto) 0.06 K/uL (0-0.2); Basophils % (auto) 0.9 %; Eosinophils # (auto) 0.06 K/uL (0-0.50); Eosinophils % (auto) 0.9 %; Hematocrit (blood only) 40.8 % (42.0-52.0); Hemoglobin 14.5 g/dl (14.0-18.0); Immature Granulocytes # (auto) 0.02 K/uL (0.01-0.20); Immature Granulocytes % (auto) 0.3 %; Lymphocytes # (auto) 1.87 K/uL (1.2-3.4); Lymphocytes % (auto) 27.9 %; Mean Corpuscular Hemoglobin 32.7 pg (25.0-34.0); Mean Corpuscular Hgb Conc 35.5 g/dL (32.0-36.0); Mean Corpuscular Volume 91.9 fL (80.0-100.0); Monocytes # (auto) 1.61 K/uL (0.11-0.59); Neutrophils # (auto) 3.09 K/uL (1.40-6.50); Platelet Count 320 K/uL (130-400); RDW Coefficient of Variation 11.9 % (11.5-14.5); RDW Standard Deviation 40.1 fL (36.4-46.3); Red Blood Count 4.44 M/uL (4.70-6.10); White Blood Count 6.71 K/ul (4.8-10.8)
[2023-03-21 15:06] LABS: Calcium 9.3 mg/dl (8.6-10.3); Creatinine Clr Calc Pharmacy 104.6 ml/min; Est GFR (African American) 104.9 ml/min; Est GFR (Non-African American) 90.5 ml/min; Magnesium 1.9 mg/dl (1.7-2.4); Potassium 2.5 mmol/L (3.5-5.1)
[2023-03-21] MEDS ORDERED: POTASSIUM CHLORIDE 10 MEQ TABCR PO STA (15:10)
--- NOTE | 2023-03-21 15:25 | CT Scan Report ---
CT head/brain wo con CLINICAL HISTORY: 47 years-old Male with nv tinnnitus etohism. Acute dizziness TECHNIQUE: Multiple axial CT images of the head were obtained without contrast. A dose lowering tech nique was utilized adhering to the principles of ALARA. CT DOSE: 625.80 mGy.cm COMPARISON: 01/25/2023 FINDINGS: No acute intracranial hemorrhage, midline shift, intracranial mass, hydrocephalus, territorial ischem ia or abnormal extra-axial collection. The calvarium is intact. The paranasal sinuses, mastoid air cells, and middle ear cavities are clear . IMPRESSION: No acute intracranial abnormality. ACT 112: Negative or not required by law. The above report was generated using voice recognition software. It may contain grammatical, syntax o r spelling errors. Electronically signed by: Chester Sands M.D. 03/21/2023 3:24 PM
[2023-03-21] MEDS: POTASSIUM CHLORIDE / WTR 10 MEQ/100 ML PLCT IV SCH ×2 (15:26→16:29)
[2023-03-21 15:34] LABS: Bilirubin Direct 0.1 mg/dl (0-0.2); Bilirubin,Total 0.5 mg/dl (0.2-1.0); Total Protein 6.9 gm/dl (6.0-8.3)
--- NOTE | 2023-03-21 16:19 | XRay Report ---
PA CHEST WITH ABDOMINAL SERIES CLINICAL HISTORY: Vomiting FINDINGS: A PA chest radiograph is compared to study dated 01/25/2023. The cardiomediastinal silhouette is unrem arkable. The lungs and pleural spaces are clear. No pneumothorax is seen. The bony thorax is grossly intact. Supine and erect abdominal radiographs are correlated with abdominal CT dated 01/25/2023. There is a n onobstructed abdominal bowel gas pattern. No evidence of intraperitoneal free air is seen. There are no abnormal abdominal calcifications. Phleboliths are seen in the pelvis. The lumbosacral spine and b hollie pelvis appear intact. IMPRESSION: 1. No active disease in the chest. 2. Nonobstructed abdominal bowel gas pattern. ACT 112: Negative or not required by law. Electronically signed by: Robert Carter M.D. 03/21/2023 4:18 PM
[2023-03-21] MEDS ORDERED: ALUMINUM/MAGNESIUM SUSP 30 ML UDC PO PRN (17:28)
[2023-03-21] MEDS ORDERED: ONDANSETRON INJ 2 MG/ML 2 ML VIAL IV PRN (17:28)
[2023-03-21] MEDS ORDERED: POLYETHYLENE (MIRALAX) 17 GM PACK PO PRN (17:28)
[2023-03-21] MEDS ORDERED: ACETAMINOPHEN 325 MG TAB PO PRN (17:28)
--- NOTE | 2023-03-21 17:58 | History & Physical Report ---
Date of Service March 21, 2023 Assessment & Plan (1) Electrolyte imbalance: (2) Hypokalemia: (3) Hyponatremia: (4) Dizziness: (5) Alcohol abuse: Plan 47 year old presents for treatment of hypokalemia identified in outpatient labs. Patient was seen as an outpatient for nausea and vomiting on Tuesday. Appears to related to gastroenteritis. Replete K+ and give fluids nd check Ortho BPs Electrolyte Imbalance: Hypokalemia: Hyponatremia: Serum K+ 2.5; replace with 40 p.o. and K rider x2 Serum Na+ 131; suspect related to dehydration and recent illness Recheck BMP at 1900 No Ectopy noted on ECG If continued hypokalemic after recheck; will add NSS + 20 KCL x1 L; otherwise just NSS Alcohol abuse: Reportedly last drink 6 days ago Takes thiamine and folic acid p.o. at home; will provide IV while here inpatient AWSS scale ordered No tremors; will hold on gabapentin taper at this time Encourage abstinence from alcohol Dizziness: Appears to be positional Orthostatic BPs ordered Disposition: PCP: Dr. Atkins CODE STATUS: Full code VTE prophylaxis: Lovenox SQ I spent a total of 87 minutes coordinating, documenting, and providing care for this patient excluding time spent in the performance of separately billed services. All of the aforementioned completed while collaborating with the assigned attending physician for a full treatment plan. Please see their addendum for further details. History of Present Illness Chief Complaint: hypokalemia Primary Care Provider: Dmitry Atkins MD Mr. Solares is a 49 year old male that presented to the ED as recommen ded by his PCP for lab work results indicating hypokalemia. Potassium level 2.5. Patient saw his outpatient PCP, Dr. Atkins on Tuesday as he was experiencing nausea and vomiting along with a mild headache. His nausea and vomiting has resolved but he states he does still at times have dizziness. No ectopy noted on ECG. Head CT performed and negative. Abdominal and chest x-ray negative. Patient had a recent admission 01/25-01/28 for rhabdomyolysis with transaminitis attributed to dehydration due to marijuana hyperemesis syndrome coupled with alcohol abuse. Most recent Echocardiogram 01/26; EF 50 to 55%, LV normal size, no valvular disease noted. Additional past medical history includes alcohol abuse for which she takes thiamine and folic acid p.o. Patient states that his last alcoholic drink was 1 week ago. Denies tremors. No tobacco or recreational drug use including marijuana. Patient will be admitted for further evaluation and management. Please see A/P for further details. Allergies Allergy/AdvReac Type Severity Reaction Status Date / Time No Known Allergies Allergy Verified 03/21/23 16:49 Home Medications Medication Instructions Recorded Confirmed Type meclizine 25 mg tablet 25 mg PO Q8H PRN Dizziness 01/25/23 03/21/23 History folic acid 1 mg tablet 1 mg PO QAM #30 tabs 01/28/23 03/21/23 Rx losartan 50 mg tablet 50 mg PO QAM 03/21/23 03/21/23 History thiamine HCl (vitamin B1) 100 mg 100 mg PO QAM 03/21/23 03/21/23 History tablet Past Med/Surg History Medical History (Updated 03/21/23 @ 18:59 by CARLENE Butcher) Alcohol abuse Dizziness Electrolyte imbalance Elevated troponin Hyponatremia Metabolic alkalosis Surgical History H/O eye surgery Family History Other Diabetes Hypertension Social History Smoking Status: Former smoker Second Hand Exposure: No; Hx Alcohol Use: Yes Alcohol type: beer Hx Substance Use: Yes Last Used Substance: Days (ago) Last Used Substance O ther:: yesterday Preferred Language: [place] Communication Ability: Effective Vice President Of Nursing Required: No Beliefs That Will Affect Care: None Current Living Situation: Parent Current Living Situation Comment: lives in 2 story home with mother Feels Safe at Home: Yes Assistive Devices: Glasses Review of Systems Review of Systems: Neuro: (-) Falls, trauma, slurred speech HEENT: (-) PAIGE, (+) dizziness, dysphagia, visual or auditory changes CV: (-) CP, palpitations, swelling Resp: (-) SOB GI: (-) appetite changes, N/V/D, bowel changes : (-) urinary changes Skin: (-) rashes Psych: (-) anxiety, depression Physical Exam Physical Exam: Neuro: AAOx4, PERRLA, no aphagia, memory changes, CNII-XII grossly intact HEENT: head normocephalic, moist mucus membranes CV: S1/S2, (-) M/G/R, (-) edema, cap refill < 3 seconds Resp: Lungs CTA in all estes. On RA GI: Abdomen S/NT/ND, Ax4 bowel sounds, (-) CVA tenderness Musculoskeletal: 5/5 B/L UE strength, 5/5 B/L LE strength. No gait disturbance Skin: (-) rashes , (-) erythema. Psych: euthymic mood Results & Data Results & Data Vital Signs (Past 12 Hours) Vital Signs Temp Pulse Pulse Resp BP BP Pulse Ox 03/21/23 17:00 77 16 148/104 H 99 03/21/23 15:34 79 16 132/100 98 03/21/23 14:32 84 03/21/23 14:27 98 03/21/23 14:26 85 16 141/98 H 95 03/21/23 14:14 36.4 C L 98 H 18 154/88 H 97 O2 Del Method 03/21/23 17:00 Room Air 03/21/23 15:34 Room Air 03/21/23 14:32 03/21/23 14:27 Room Air 03/21/23 14:26 Room Air 03/21/23 14:14 Room Air Laboratory Results Short CBC 03/21/23 Range/Units 14:24 WBC 6.71 (4.8-10.8) K/ul Hgb 14.5 (14.0-18.0) g/dl Hct 40.8 L (42.0-52.0) % Plt Count 320 (130-400) K/uL BMP 03/21/23 14:24 Sodium 131 L Potassium 2.5 L* Chloride 89 L Carbon Dioxide 36 H BUN 15 Creatinine 1.00 Glucose 81 Calcium 9.3 Liver Function 03/21/23 Range/Units 14:55 Total Bilirubin 0.5 (0.2-1.0) mg/dl Direct Bilirubin 0.1 (0-0.2) mg/dl AST 37 (13-39) U/L ALT 46 (7-52) U/L Alkaline Phosphatase 81 (34-104) U/L Albumin 4.0 (3.4-5.0) gm/dl Diagnostic Findings Head CT 03/21/23 14:47 CT head/brain wo con CLINICAL HISTORY: 47 years-old Male with nv tinnnitus etohism. Acute dizziness TECHNIQUE: Multiple axial CT images of the head were obtained without contrast. A dose lowering technique was utilized adhering to the principles of ALARA. CT DOSE: 625.80 mGy.cm COMPARISON: 01/25/2023 FINDINGS: No acute intracranial hemorrhage, midline shift, intracranial mass, hydrocephalus, territorial ischemia or abnormal extra-axial collection. The calvarium is intact. The paranasal sinuses, mastoid air cells, and middle ear cavities are clear. IMPRESSION: No acute intracranial abnormality. ACT 112: Negative or not required by law. The above report was generated using voice recognition software. It may contain grammatical, syntax or spelling errors. Electronically signed by: Chester Sands M.D. 03/21/2023 3:24 PM Chest/Abdomen X-ray 03/21/23 15:33 PA CHEST WITH ABDOMINAL SERIES CLINICAL HISTORY: Vomiting FINDINGS: A PA chest radiograph is compared to study dated 01/25/2023. The cardiomediastinal silhouette is unremarkable. The lungs and pleural spaces are clear. No pneumothorax is seen. The bony thorax is grossly intact. Supine and erect abdominal radiographs are correlated with abdominal CT dated 01/25/2023. There is a nonobstructed abdominal bowel gas pattern. No evidence of intraperitoneal free air is seen. There are no abnormal abdominal calcifications. Phleboliths are seen in the pelvis. The lumbosacral spine and bony pelvis appear intact. IMPRESSION: 1. No active disease in the chest. 2. Nonobstructed abdominal bowel gas pattern. ACT 112: Negative or not required by law. Electronically signed by: Robert Carter M.D. 03/21/2023 4:18 PM Code Status & VTE Plan Code Status Full code in the event of cardiac or respiratory arrest VTE Prophylaxis Plan VTE Prophylaxis will be ordered: Yes Supervising Physician Co-Signing Physician Notes I have seen and examined the patient and have discussed the case with the provider above. I agree with the assessment and plan as stated with the following exceptions. The patient is a 47-year-old man who presents with abnormal potassium and sodium. As described above he was recently sick for approximately 3 days last week both with vomiting and diarrhea which have ceased. He is now tolerating p.o. without difficulty and has no further nausea. He occasionally has some lightheadedness when he goes to stand but otherwise is ambulating independently without acute deficit. Today on physical exam he is well-nourished well-developed and appears hydrated. Physical exam is otherwise unremarkable and he is ambulating around the room without issue. CBC was normal aside from a slight monocytosis on differential. Chemistry today revealed a sodium of 131, potassium 2.5, chloride 89, CO2 36 with a BUN of 15 and creatinine of 1. Lipase was unremarkable. Hepatic panel was normal. Alcohol level was negative and the patient has a history of alcohol use, denying any drink in the last week. He also reports quitting marijuana smoking since his last discharge from the hospital. He denies feeling any better after stopping this. A chest x-ray with abdominal series revealed no acute active disease in the chest and a nonobstructive abdominal bowel gas pattern. Head CT was performed with no acute intracranial abnormalities. Agree with aggressive replacement of potassium on telemetry. Suspect sodium will rise with eating and drinking. Currently 131. We will repeat BMP in a.m. Mg is normal. Cont encouraging PO intake and praised for avoiding marijuana and alcohol in the last week. Likely home tomorrow after correction of electrolytes. DO Hoang
--- NOTE | 2023-03-21 18:07 | Emergency Department Note ---
History of Present Illness General Chief Complaint: Abnormal Labs/Diagnostic Testing Stated Complaint: REF BY DOC - LOW SODIUM Time Seen by Provider: 03/21/23 14:22 History of Present Illness Provider Complaint: + abnormal lab Description of abnormal result: Low-sodium Associated symptoms: no fever, no chills, no chest pain, no shortness of breath or no abdominal pain Home Medications Medication Instructions Recorded Confirmed Type meclizine 25 mg tablet 25 mg PO Q8H PRN Dizziness 01/25/23 03/21/23 History folic acid 1 mg tablet 1 mg PO QAM #30 tabs 01/28/23 03/21/23 Rx losartan 50 mg tablet 50 mg PO QAM 03/21/23 03/21/23 History thiamine HCl (vitamin B1) 100 mg 100 mg PO QAM 03/21/23 03/21/23 History tablet Allergies Allergy/AdvReac Type Severity Reaction Status Date / Time No Known Allergies Allergy Verified 03/21/23 16:49 Past Med/Surg History Medical History Alcohol abuse Dizziness Elevated troponin Metabolic alkalosis Surgical History H/O eye surgery Family History Other Diabetes Hypertension Social History Smoking Status: Former smoker Second Hand Exposure: No; Hx Alcohol Use: Yes Alcohol type: beer Hx Substance Use: Yes Last Used Substance: Days (ago) Last Used Substance Other:: yesterday Preferred Language: Sinhala Communication Ability: Effective Night Clerk Auditor Required: No Beliefs That Will Affect Care: None Current Living Situation: Parent Current Living Situation Comment: lives in 2 story home with mother Feels Safe at Home: Yes Assistive Devices: Glasses Physical Exam Vital Signs: Vital Signs - 24 hr 03/21/23 14:14 03/21/23 14:26 03/21/23 14:27 Temperature 36.4 C L Temperature Source Temporal Artery Sc an Pulse Rate 98 H Pulse Rate [Right Apical] 85 Pulse Rate from Sp O2 Sensor Pulse Rhythm Regular Pulse Strength Normal Respiratory Rate 18 16 Respiratory Effort / Characteristics Non-Labored Sponta neous Non-Labored Sponta neous Respiratory Depth Normal Normal Respiratory Patter n Regular Regular Blood Pressure 154/88 H Blood Pressure [Le ft Arm] 141/98 H Blood Pressure Karin n 110 Blood Pressure Karin n [Left Arm] 112 Blood Pressure Pos ition Sitting Pulse Oximetry 97 95 98 Oxygen Delivery Me thod Room Air Room Air Room Air Sepsis Recent Feve r Within 48 Hours No Sepsis New/Unexpla ined Change in Men lola Status No Sepsis Action Take n by Nursing No Action Required 03/21/23 14:32 03/21/23 15:34 03/21/23 17:00 Temperature Temperature Source Pulse Rate 84 79 77 Pulse Rate [Right Apical] Pulse Rate from Sp O2 Sensor 81 77 Pulse Rhythm Pulse Strength Respiratory Rate 16 16 Respiratory Effort / Characteristics Respiratory Depth Respiratory Patter n Blood Pressure 132/100 148/104 H Blood Pressure [Le ft Arm] Blood Pressure Karin n 110 118 Blood Pressure Karin n [Left Arm] Blood Pressure Pos ition Pulse Oximetry 98 99 Oxygen Delivery Me thod Room Air Room Air Sepsis Recent Feve r Within 48 Hours Sepsis New/Unexpla ined Change in Men lola Status Sepsis Action Take n by Nursing Physical Exam: Physical Exam GENERAL: oriented to person, place, and time. appears well-developed and well-nourished. HENT: Exam performed. - Head: Normocephalic and atraumatic. EYES: Conjunctivae and EOM are normal. Right eye exhibits no discharge. Left eye exhibits no discharge. No scleral icterus. NECK: Normal range of motion. Neck supple. No JVD present. CV: Normal rate, regular rhythm, normal heart sounds and intact distal pulses. There is no peripheral edema. Palpable radial pulses bue. PULM/CHEST: Effort normal and breath sounds normal. No respiratory distress. No stridor. no wheezes. no rales. ABD: The abdomen is soft. There is no tenderness. NEURO: Motor and sensation grossly intact. SKIN: Skin is warm and dry. He is not diaphoretic. PSYCH: normal mood and affect. Behavior is normal. Judgment and thought content normal. Course Course 1422: The patient was evaluated in room C6. A complete history and physical exam was performed Cardiac monitoring: An order was placed for continuous cardiac monitoring. The monitor shows a rate of 80 with sinus rhythm interpreted by me 1615: Vital signs stable. Sodium within normal limits. Imaging within normal limits. Potassium 2.5. Potassium repletion started in the emergency department. Patient be admitted to the [facility] hospitalist team Dr. Bolton team Administered Medications Discontinued Medications Potassium Chloride (K Jean / Wtr) 10 meq in 100 mls @ 100 mls/hr IV Q1H THIERNO Stop: 03/21/23 17:14 Last Infusion: 03/21/23 17:34 Dose: 0 mls/hr Documented By: Admin: 03/21/23 16:29 Dose: 100 mls/hr Documented By: Infusion: 03/21/23 16:26 Dose: 0 mls/hr Documented By: Admin: 03/21/23 15:26 Dose: 100 mls/hr Documented By: JOVANA Potassium Chloride (Potassium Chloride 10 Meq Tabcr) 40 meq PO NOW STA Stop: 03/21/23 15:11 Last Admin: 03/21/23 15:24 Dose: 40 meq Documented By: JOVANA Medical Decision Making Medical Records Attestation: I reviewed the patient's medical records. External medical records were reviewed from the [facility]. Patient had blood work done 2 days ago which showed a sodium of 121 and a potassium of 2.5. Laboratory Data Attestation: I reviewed the patient's lab results. 03/21/23 14:24 03/21/23 14:24 Lab Results 03/21/23 03/21/23 03/21/23 Range/Units 14:24 14:24 14:50 WBC 6.71 (4.8-10.8) K/ul RBC 4.44 L (4.70-6.10) M/uL Hgb 14.5 (14.0-18.0) g/dl Hct 40.8 L (42.0-52.0) % MCV 91.9 (80.0-100.0) fL MCH 32.7 (25.0-34.0) pg MCHC 35.5 (32.0-36.0) g/dL RDW Std Deviation 40.1 (36.4-46.3) fL RDW Coeff of Dede 11.9 (11.5-14.5) % Plt Count 320 (130-400) K/uL MPV 9.0 L (9.4-12.4) fL Immature Gran % (Auto) 0.3 % Neut % (Auto) 46.0 % Lymph % (Auto) 27.9 % [place]oshone % (Auto) 24.0 % Eos % (Auto) 0.9 % Baso % (Auto) 0.9 % Neut # (Auto) 3.09 (1.40-6.50) K/uL Lymph # (Auto) 1.87 (1.2-3.4) K/uL Shoshone # (Auto) 1.61 H (0.11-0.59) K/uL Eos # (Auto) 0.06 (0-0.50) K/uL Baso # (Auto) 0.06 (0-0.2) K/uL Immature Gran # (Auto) 0.02 (0.01-0.20) K/uL Sodium 131 L (136-145) mmol/L Potassium 2.5 L* (3.5-5.1) mmol/L Chloride 89 L (98-107) mmol/L Carbon Dioxide 36 H (21-32) mmol/L Anion Gap 6 (3-11) BUN 15 (6-23) mg/dl Creatinine 1.00 (0.6-1.4) mg/dl Est Cr Clr Drug Dosing 104.6 ml/min Est GFR ( Amer) 104.9 ml/min Est GFR (Non-Af Amer) 90.5 ml/min BUN/Creatinine Ratio 15.0 (10-20) Glucose 81 (70-99(Fasting)) mg/dl POC Glucose 114 H (70-99) mg/dl Calcium 9.3 (8.6-10.3) mg/dl Magnesium 1.9 (1.7-2.4) mg/dl Total Bilirubin (0.2-1.0) mg/dl Direct Bilirubin (0-0.2) mg/dl AST (13-39) U/L ALT (7-52) U/L Alkaline Phosphatase (34-104) U/L Total Protein (6.0-8.3) gm/dl Albumin (3.4-5.0) gm/dl Lipase (11-82) U/L Ethyl Alcohol mg/dL (<10.0) mg/dl SARS-CoV-2, RNA, NAAT (NEGATIVE) 03/21/23 03/21/23 03/21/23 Range/Units 14:55 14:55 14:55 WBC (4.8-10.8) K/ul RBC (4.70-6.10) M/uL Hgb (14.0-18.0) g/dl Hct (42.0-52.0) % MCV (80.0-100.0) fL MCH (25.0-34.0) pg MCHC (32.0-36.0) g/dL RDW Std Deviation (36.4-46.3) fL RDW Coeff of Dede (11.5-14.5) % Plt Count (130-400) K/uL MPV (9.4-12.4) fL Immature Gran % (Auto) % Neut % (Auto) % Lymph % (Auto) % [place]oshone % (Auto) % Eos % (Auto) % Baso % (Auto) % Neut # (Auto) (1.40-6.50) K/uL Lymph # (Auto) (1.2-3.4) K/uL Shoshone # (Auto) (0.11-0.59) K/uL Eos # (Auto) (0-0.50) K/uL Baso # (Auto) (0-0.2) K/uL Immature Gran # (Auto) (0.01-0.20) K/uL Sodium (136-145) mmol/L Potassium (3.5-5.1) mmol/L Chloride (98-107) mmol/L Carbon Dioxide (21-32) mmol/L Anion Gap (3-11) BUN (6-23) mg/dl Creatinine (0.6-1.4) mg/dl Est Cr Clr Drug Dosing ml/min Est GFR ( Amer) ml/min Est GFR (Non-Af Amer) ml/min BUN/Creatinine Ratio (10-20) Glucose (70-99(Fasting)) mg/dl POC Glucose (70-99) mg/dl Calcium (8.6-10.3) mg/dl Magnesium (1.7-2.4) mg/dl Total Bilirubin 0.5 (0.2-1.0) mg/dl Direct Bilirubin 0.1 (0-0.2) mg/dl AST 37 (13-39) U/L ALT 46 (7-52) U/L Alkaline Phosphatase 81 (34-104) U/L Total Protein 6.9 (6.0-8.3) gm/dl Albumin 4.0 (3.4-5.0) gm/dl Lipase 43 (11-82) U/L Ethyl Alcohol mg/dL < 10.0 (<10.0) mg/dl SARS-CoV-2, RNA, NAAT (NEGATIVE) 03/21/23 Range/Units 16:30 WBC (4.8-10.8) K/ul RBC (4.70-6.10) M/uL Hgb (14.0-18.0) g/dl Hct (42.0-52.0) % MCV (80.0-100.0) fL MCH (25.0-34.0) pg MCHC (32.0-36.0) g/dL RDW Std Deviation (36.4-46.3) fL RDW Coeff of Dede (11.5-14.5) % Plt Count (130-400) K/uL MPV (9.4-12.4) fL Immature Gran % (Auto) % Neut % (Auto) % Lymph % (Auto) % [place] % (Auto) % Eos % (Auto) % Baso % (Auto) % Neut # (Auto) (1.40-6.50) K/uL Lymph # (Auto) (1.2-3.4) K/uL [place]oshone # (Auto) (0.11-0.59) K/uL Eos # (Auto) (0-0.50) K/uL Baso # (Auto) (0-0.2) K/uL Immature Gran # (Auto) (0.01-0.20) K/uL Sodium (136-145) mmol/L Potassium (3.5-5.1) mmol/L Chloride (98-107) mmol/L Carbon Dioxide (21-32) mmol/L Anion Gap (3-11) BUN (6-23) mg/dl Creatinine (0.6-1.4) mg/dl Est Cr Clr Drug Dosing ml/min Est GFR ( Amer) ml/min Est GFR (Non-Af Amer) ml/min BUN/Creatinine Ratio (10-20) Glucose (70-99(Fasting)) mg/dl POC Glucose (70-99) mg/dl Calcium (8.6-10.3) mg/dl Magnesium (1.7-2.4) mg/dl Total Bilirubin (0.2-1.0) mg/dl Direct Bilirubin (0-0.2) mg/dl AST (13-39) U/L ALT (7-52) U/L Alkaline Phosphatase (34-104) U/L Total Protein (6.0-8.3) gm/dl Albumin (3.4-5.0) gm/dl Lipase (11-82) U/L Ethyl Alcohol mg/dL (<10.0) mg/dl SARS-CoV-2, RNA, NAAT NEGATIVE (NEGATIVE) Imaging Data Attestation: I personally reviewed and interpreted this imaging study as follows: My Impression: Chest x-ray negative. Airway clear. No pneumothorax. No consolidation. No cardiomegaly or cephalization.. No free air under the diaphragm. No fractures of the skeletal structures. No air-fluid levels. Nonspecific bowel gas pattern. Radiologist's Impression: Head CT 03/21/23 14:47 CT head/brain wo con CLINICAL HISTORY: 47 years-old Male with nv tinnnitus etohism. Acute dizziness TECHNIQUE: Multiple axial CT images of the head were obtained without contrast. A dose lowering technique was utilized adhering to the principles of ALARA. CT DOSE: 625.80 mGy.cm COMPARISON: 01/25/2023 FINDINGS: No acute intracranial hemorrhage, midline shift, intracranial mass, hydrocephalus, territorial ischemia or abnormal extra-axial collection. The calvarium is intact. The paranasal sinuses, mastoid air cells, and middle ear cavities are clear. IMPRESSION: No acute intracranial abnormality. ACT 112: Negative or not required by law. The above report was generated using voice recognition software. It may contain grammatical, syntax or spelling errors. Electronically signed by: Chester Sands M.D. 03/21/2023 3:24 PM Chest/Abdomen X-ray 03/21/23 15:33 PA CHEST WITH ABDOMINAL SERIES CLINICAL HISTORY: Vomiting FINDINGS: A PA chest radiograph is compared to study dated 01/25/2023. The cardiomediastinal silhouette is unremarkable. The lungs and pleural spaces are clear. No pneumothorax is seen. The bony thorax is grossly intact. Supine and erect abdominal radiographs are correlated with abdominal CT dated 01/25/2023. There is a nonobstructed abdominal bowel gas pattern. No evidence of intraperitoneal free air is seen. There are no abnormal abdominal calci fications. Phleboliths are seen in the pelvis. The lumbosacral spine and bony pelvis appear intact. IMPRESSION: 1. No active disease in the chest. 2. Nonobstructed abdominal bowel gas pattern. ACT 112: Negative or not required by law. Electronically signed by: Robert Carter M.D. 03/21/2023 4:18 PM ECG Data Attestation: I personally reviewed and interpreted this ECG as follows: Indication: vomiting Rate (beats per minute): 76 Rhythm: normal sinus Findings: no ST depression, no ST elevation or no prolonged QT MDM Narrative 1422: The patient was evaluated in room C6. A complete history and physical exam was performed Cardiac monitoring: An order was placed for continuous cardiac monitoring. The monitor shows a rate of 80 with sinus rhythm interpreted by me 1615: Vital signs stable. Sodium within normal limits. Imaging within normal limits. Potassium 2.5. Potassium repletion started in the emergency department. [facility] Impression & Plan Hypokalemia Discharge Plan Visit Data Chief Complaint: Abnormal Labs/Diagnostic Testing Stated Complaint: REF BY DOC - LOW SODIUM ED Provider: Henok Orozco Discharge Problem: Hypokalemia Patient Disposition: Admitted As Inpatient Forms Stand Alone Forms: [facility] Prescriptions Prescriptions: No Action losartan 50 mg tablet 50 mg PO QAM thiamine HCl (vitamin B1) 100 mg Tablet 100 mg PO QAM meclizine 25 mg Tablet 25 mg PO Q8H PRN (Reason: Dizziness) folic acid 1 mg Tablet 1 mg PO QAM Qty: 30 0RF Referrals Referrals: Dmitry Atkins MD [Primary Care Provider] -
[2023-03-21] MEDS ORDERED: POTASSIUM CHLORIDE PWD 20 MEQ PACK PO ONE (19:54)
[2023-03-21 20:00] LABS: BUN Creatinine Ratio 12.6 (10-20); Calcium 8.9 mg/dl (8.6-10.3); Creatinine Clr Calc Pharmacy 110.1 ml/min; Est GFR (African American) 111.6 ml/min; Est GFR (Non-African American) 96.3 ml/min; Potassium 2.6 mmol/L (3.5-5.1)
[2023-03-21] MEDS ORDERED: POTASSIUM CHLORIDE 40 MEQ in SODIUM CHLORIDE 0.9% 1000ML 1,000 ML IV SCH (21:00)
[2023-03-22 08:06] LABS: BUN Creatinine Ratio 11.8 (10-20); Calcium 8.8 mg/dl (8.6-10.3); Creatinine Clr Calc Pharmacy 122.6 ml/min; Est GFR (Non-African American) 105.2 ml/min; Magnesium 1.9 mg/dl (1.7-2.4); Phosphorus 2.5 mg/dl (2.5-4.9); Potassium 3.2 mmol/L (3.5-5.1)
[2023-03-22] MEDS ORDERED: THIAMINE HCL 100 MG in SYRINGE 9 ML IV SCH (09:00)
[2023-03-22] MEDS ORDERED: FOLIC ACID 1 MG in SYRINGE 9.8 ML IV SCH (09:00)
[2023-03-22] MEDS ORDERED: ENOXAPARIN INJ 40 MG/0.4 ML SYR SQ SCH (09:00)
[2023-03-22] MEDS ORDERED: THIAMINE HCL 100 MG TAB PO SCH (09:00)
[2023-03-22] MEDS ORDERED: FOLIC ACID 1 MG TAB PO SCH (09:00)
--- NOTE | 2023-03-22 09:44 | Electrocardiogram Report ---
Test Reason : Blood Pressure : / mmHG Vent. Rate : 076 BPM Atrial Rate : 076 BPM P-R Int : 146 ms QRS Dur : 110 ms QT Int : 418 ms P-R-T Axes : 072 023 047 degrees QTc Int : 470 ms Normal sinus rhythm Possible Left atrial enlargement Minimal voltage criteria for LVH, may be normal variant Nonspecific ST abnormality Abnormal ECG When compared with ECG of 26-JAN-2023 09:03, Questionable change in QRS axis T wave inversion no longer evident in Inferior leads Nonspecific T wave abnormality no longer evident in Lateral leads Confirmed by Adrien Hankins ([id number]) on 03/22/2023 9:44:17 AM Referred By: REFERRED SELF Confirmed By:Adrien Hankins
[2023-03-22 09:56] LABS: Amphetamines+Metham, Urine Neg (Neg); Barbiturates, Urine Neg (Neg); Benzodiazepine, Urine Neg (Neg); Cocaine, Urine Neg (Neg); MDMA (Ecstacy), Urine Neg (Neg); Methadone, Urine Neg (Neg); Opiate, Urine Neg (Neg); Phencyclidine, Urine Neg (Neg)
[2023-03-22] MEDS ORDERED: POTASSIUM CHLORIDE CRTAB 20 MEQ TABCR PO ONE (12:40)
--- NOTE | 2023-03-22 14:07 | Hospitalist Progress Note ---
Date of Service March 22, 2023 Assessment & Plan (1) Electrolyte imbalance: (2) Hypokalemia: (3) Hyponatremia: (4) Dizziness: (5) Alcohol abuse: Plan 47 year old presents for treatment of hypokalemia identified in outpatient labs. Patient was seen as an outpatient for nausea and vomiting on Tuesday. Appears to related to gastroenteritis. Replete K+ and give fluids nd check Ortho BPs Electrolyte Imbalance: Hypokalemia: Hyponatremia: Secondary to GI losses: Nausea, vomiting, diarrhea, Dizziness resolved Electrolytes replaced as needed Sodium levels improved to 136 Potassium improved to 3.2 Continue potassium supplement Advised to get BMP in 3 days and follow-up with PCP upon discharge Alcohol abuse: Reportedly last drink 6 days ago Patient states, his planning to quit alcohol use completely No signs of withdrawal Continue thiamine, folic acid Dizziness: Likely orthostatic hypotension secondary to dehydration Resolved DVT Px: Lovenox S CODE STATUS: Full code Disposition Home Admission and Anticipated Discharge Date Admission Date: March 21, 2023 Subjective Patient is seen and examined at bedside Nausea, vomiting, dizziness resolved Denies any chest pain, dyspnea,, diarrhea, abdominal pain No other complaints Eager to be discharged Review of Systems Review of Systems: All systems reviewed & are unremarkable except as noted in Subjective Physical Exam Physical Exam: Physical Exam: Vitals signs as noted above General Appearance:Thin, Frail, no apparent distress Head: normocephalic, Atraumatic Eyes: normal inspection, EOMI Neck: supple, Trachea midline Respiratory/Chest: Normal breath sounds, CTA, No accessory muscle use Cardiovascular: S1, S2, No murmur Abdomen/GI:Soft, Non tender, Bowel sounds present Extremities/Musculoskeletal:normal inspection, no edema Neurologic/Psych:AAOX3, grossly no focal neurological deficits Skin: normal color, warm Results & Data Results & Data Vital Signs (Past 12 Hours) Vital Signs Temp Pulse Pulse Resp BP BP Pulse Ox 03/22/23 11:33 36.8 C 78 18 144/85 H 97 03/22/23 07:45 36.7 C 57 L 18 131/80 99 03/22/23 07:14 64 03/22/23 04:00 36.8 C 70 18 116/72 95 O2 Del Method 03/22/23 11:33 Room Air 03/22/23 07:45 Room Air 03/22/23 07:14 03/22/23 04:00 Room Air Laboratory Results Short CBC 03/21/23 Range/Units 14:24 WBC 6.71 (4.8-10.8) K/ul Hgb 14.5 (14.0-18.0) g/dl Hct 40.8 L (42.0-52.0) % Plt Count 320 (130-400) K/uL BMP 03/21/23 03/21/23 03/22/23 14:24 19:16 07:17 Sodium 131 L 132 L 136 Potassium 2.5 L* 2.6 L 3.2 L D Chloride 89 L 90 L 99 Carbon Dioxide 36 H 34 H 32 BUN 15 12 10 Creatinine 1.00 0.95 0.85 Glucose 81 129 H 100 H Calcium 9.3 8.9 8.8 Liver Function 03/21/23 Range/Units 14:55 Total Bilirubin 0.5 (0.2-1.0) mg/dl Direct Bilirubin 0.1 (0-0.2) mg/dl AST 37 (13-39) U/L ALT 46 (7-52) U/L Alkaline Phosphatase 81 (34-104) U/L Albumin 4.0 (3.4-5.0) gm/dl
--- NOTE | 2023-03-22 15:04 | Discharge Summary ---
Date of Service March 22, 2023 Admission HPI Per Admitting Provider Mr. Solares is a 49 year old male that presented to the ED as recommended by his PCP for lab work results indicating hypokalemia. Potassium level 2.5. Patient saw his outpatient PCP, Dr. Atkins on Tuesday as he was experiencing nausea and vomiting along with a mild headache. His nausea and vomiting has resolved but he states he does still at times have dizziness. No ectopy noted on ECG. Head CT performed and negative. Abdominal and chest x-ray negative. Patient had a recent admission 01/25-01/28 for rhabdomyolysis with transaminitis attributed to dehydration due to marijuana hyperemesis syndrome coupled with alcohol abuse. Most recent Echocardiogram 01/26; EF 50 to 55%, LV normal size, no valvular disease noted. Additional past medical history includes alcohol abuse for which she takes th iamine and folic acid p.o. Patient states that his last alcoholic drink was 1 week ago. Denies tremors. No tobacco or recreational drug use including marijuana. Patient will be admitted for further evaluation and management. Please see A/P for further details. Admission Exam Per Admitting Provider General:.NAD, well developed, well nourished, average body habitus HEENT:.Normocephalic and atraumatic, Normal Conjunctiva, EOMI, Sclera is non-icteric Lungs:.No signs of respiratory distress, CTA, no wheezing or crackles Heart:.Normal S1, S2, no murmur Abdominal:.ND, Soft, NT MSK:.No deformities of UE and LE, No leg edema Neuro: CN II-XII intact, normal motor strength, PERRLA Psych:.AAOx3, normal affect Principal Diagnosis Hypokalemia Hyponatremia Dizziness Discharge Data Allergies Allergy/AdvReac Type Severity Reaction Status Date / Time No Known Allergies Allergy Verified 03/21/23 16:49 Consultations 03/21/23 16:12 ED Decision to Admit Stat Procedures Performed Laboratory Results WBC 6.71 K/ul (4.8-10.8) 03/21/23 14:24 RBC 4.44 M/uL (4.70-6.10) L 03/21/23 14:24 Hgb 14.5 g/dl (14.0-18.0) 03/21/23 14:24 Hct 40.8 % (42.0-52.0) L 03/21/23 14:24 MCV 91.9 fL (80.0-100.0) 03/21/23 14:24 MCH 32.7 pg (25.0-34.0) 03/21/23 14:24 MCHC 35.5 g/dL (32.0-36.0) 03/21/23 14:24 RDW Std Deviation 40.1 fL (36.4-46.3) 03/21/23 14:24 RDW Coeff of Dede 11.9 % (11.5-14.5) 03/21/23 14:24 Plt Count 320 K/uL (130-400) 03/21/23 14:24 MPV 9.0 fL (9.4-12.4) L 03/21/23 14:24 Immature Gran % (Auto) 0.3 % 03/21/23 14:24 Neut % (Auto) 46.0 % 03/21/23 14:24 Lymph % (Auto) 27.9 % 03/21/23 14:24 [place] % (Auto) 24.0 % 03/21/23 14:24 Eos % (Auto) 0.9 % 03/21/23 14:24 Baso % (Auto) 0.9 % 03/21/23 14:24 Neut # (Auto) 3.09 K/uL (1.40-6.50) 03/21/23 14:24 Lymph # (Auto) 1.87 K/uL (1.2-3.4) 03/21/23 14:24 [place] # (Auto) 1.61 K/uL (0.11-0.59) H 03/21/23 14:24 Eos # (Auto) 0.06 K/uL (0-0.50) 03/21/23 14:24 Baso # (Auto) 0.06 K/uL (0-0.2) 03/21/23 14:24 Immature Gran # (Auto) 0.02 K/uL (0.01-0.20) 03/21/23 14:24 Sodium 136 mmol/L (136-145) 03/22/23 07:17 Potassium 3.2 mmol/L (3.5-5.1) L D 03/22/23 07:17 Chloride 99 mmol/L (98-107) 03/22/23 07:17 Carbon Dioxide 32 mmol/L (21-32) 03/22/23 07:17 Anion Gap 5 (3-11) 03/22/23 07:17 BUN 10 mg/dl (6-23) 03/22/23 07:17 Creatinine 0.85 mg/dl (0.6-1.4) 03/22/23 07:17 Est Cr Clr Drug Dosing 122.6 ml/min 03/22/23 07:17 Est GFR ( Amer) 122.0 ml/min 03/22/23 07:17 Est GFR (Non-Af Amer) 105.2 ml/min 03/22/23 07:17 BUN/Creatinine Ratio 11.8 (10-20) 03/22/23 07:17 Glucose 100 mg/dl (70-99(Fasting)) H 03/22/23 07:17 POC Glucose 114 mg/dl (70-99) H 03/21/23 14:50 Calcium 8.8 mg/dl (8.6-10.3) 03/22/23 07:17 Phosphorus 2.5 mg/dl (2.5-4.9) 03/22/23 07:17 Magnesium 1.9 mg/dl (1.7-2.4) 03/22/23 07:17 Total Bilirubin 0.5 mg/dl (0.2-1.0) 03/21/23 14:55 Direct Bilirubin 0.1 mg/dl (0-0.2) 03/21/23 14:55 AST 37 U/L (13-39) 03/21/23 14:55 ALT 46 U/L (7-52) 03/21/23 14:55 Alkaline Phosphatase 81 U/L (34-104) 03/21/23 14:55 Total Protein 6.9 gm/dl (6.0-8.3) 03/21/23 14:55 Albumin 4.0 gm/dl (3.4-5.0) 03/21/23 14:55 Lipase 43 U/L (11-82) 03/21/23 14:55 Urine Opiates Screen Neg (Neg) 03/22/23 Unknown Ur Methadone, Qual Neg (Neg) 03/22/23 Unknown Urine Barbiturates Neg (Neg) 03/22/23 Unknown Ur Phencyclidine (PCP) Neg (Neg) 03/22/23 Unknown U Amphetamin/Meth Scrn Neg (Neg) 03/22/23 Unknown MDMA (Ecstasy) Screen Neg (Neg) 03/22/23 Unknown U Benzodiazepines Scrn Neg (Neg) 03/22/23 Unknown Ur Cocaine Metabolite Neg (Neg) 03/22/23 Unknown U Marijuana (THC) Screen Neg (Neg) 03/22/23 Unknown Ethyl Alcohol mg/dL < 10.0 mg/dl (<10.0) 03/21/23 14:55 SARS-CoV-2, RNA, NAAT NEGATIVE (NEGATIVE) 03/21/23 16:[address] 03/21/23 14:47 CT head/brain wo con CLINICAL HISTORY: 47 years-old Male with nv tinnnitus etohism. Acute dizziness TECHNIQUE: Multiple axial CT images of the head were obtained without contrast. A dose lowering technique was utilized adhering to the principles of ALARA. CT DOSE: 625.80 mGy.cm COMPARISON: 01/25/2023 FINDINGS: No acute intracranial hemorrhage, midline shift, intracranial mass, hydrocephalus, territorial ischemia or abnormal extra-axial collection. The calvarium is intact. The paranasal sinuses, mastoid air cells, and middle ear cavities are clear. IMPRESSION: No acute intracranial abnormality. ACT 112: Negative or not required by law. The above report was generated using voice recognition software. It may contain grammatical, syntax or spelling errors. Electronically signed by: Chester Sands M.D. 03/21/2023 3:24 PM Chest/Abdomen X-ray 03/21/23 15:33 PA CHEST WITH ABDOMINAL SERIES CLINICAL HISTORY: Vomiting FINDINGS: A PA chest radiograph is compared to study dated 01/25/2023. The cardiomediastinal silhouette is unremarkable. The lungs and pleural spaces are clear. No pneumothorax is seen. The bony thorax is grossly intact. Supine and erect abdominal radiographs are correlated with abdominal CT dated 01/25/2023. There is a nonobstructed abdominal bowel gas pattern. No evidence of intraperitoneal free air is seen. There are no abnormal abdominal calcifications. Phleboliths are seen in the pelvis. The lumbosacral spine and bony pelvis appear intact. IMPRESSION: 1. No active disease in the chest. 2. Nonobstructed abdominal bowel gas pattern. ACT 112: Negative or not required by law. Electronically signed by: Robert Carter M.D. 03/21/2023 4:18 PM Ordered Studies 03/21/23 14:47 CT head/brain wo con Stat Hospital Course (1) Electrolyte imbalance: (2) Hypokalemia: (3) Hyponatremia: (4) Dizziness: (5) Alcohol abuse: Plan 47 year old presents for treatment of hypokalemia identified in outpatient labs. Patient was seen as an outpatient for nausea and vomiting on Tuesday. Appears to related to gastroenteritis. Replete K+ and give fluids nd check Ortho BPs Electrolyte Imbalance: Hypokalemia: Hyponatremia: Secondary to GI losses: Nausea, vomiting, diarrhea, Dizziness resolved Electrolytes replaced as needed Sodium levels improved to 136 Potassium improved to 3.2 Continue potassium supplement Advised to get BMP in 3 days and follow-up with PCP upon discharge Alcohol abuse: Reportedly last drink 6 days ago Patient states, his planning to quit alcohol use completely No signs of withdrawal Continue thiamine, folic acid Dizziness: Likely orthostatic hypotension secondary to dehydration Resolved DVT Px: Lovenox S CODE STATUS: Full code Disposition Home Total Time Total Time Spent Total Time Spent (In Minutes): 56 minutes Discharge Plan Discharge Items Patient Disposition: Home - Self-Care Reason For Visit: HYPOKALEMIA Discharge Diagnosis: Hypokalemia Hyponatremia Dizziness Activity: Per Instructions section Exercise/Sports: Gradually increase as tolerated Non-emergency contact: Primary Care Provider Call non-emergency contact if: you have any medication questions, your symptoms worsen, your pain is concerning for you and you have a fever Follow-up/Referrals: Dmitry Atkins MD [Primary Care Provider] - (Date & Time 03/28/2023 11:20 Justen Atkins, [facility] ) Diet: Heart Healthy Addtl Attending Provider Instructions: Follow-up with your primary care physician in 1 week as advised --Obtain Blood test (basic metabolic panel) in 3 days and discuss with your physician for further recommendations on potassium supplement as advised. Take potassium chloride 40 mEq tomorrow, then take 20 mEq daily for 2 more days. Further recommendations based on your blood test results. Seek immediate medical attention if your symptoms reoccur or worsen Please take all medications as instructed on discharge list below. Please call if you have any questions or problems. You can reach a [facility] hospitalist on duty at [facility] 24 hours a day by calling [phone] Pending Studies at Discharge: No Stand-Alone Forms: My [facility], Smoking Cessation Medications and DC Order Prescriptions: New potassium chloride 20 mEq tablet extended release 20 meq PO UD Qty: 4 0RF Rx Instructions: Take 40 mEq for 1 day(03/23/13), then take 20 mEq daily for 2 days and stop Continued losartan 50 mg tablet 50 mg PO QAM thiamine HCl (vitamin B1) 100 mg Tablet 100 mg PO QAM meclizine 25 mg Tablet 25 mg PO Q8H PRN (Reason: Dizziness) folic acid 1 mg Tablet 1 mg PO QAM Qty: 30 0RF Discharge Orders: Discharge Order (Routine); Ordered 03/22/23 Ordered By: Jeffrey Eubanks Admission Data Admit Date/Time: 03/21/23 17:28 Attending Provider: Jeffrey Eubanks Admit Provider: Riddhi Bolton Primary Care Provider: Dmitry Atkins Other Providers: Riddhi Bolton Other Interventions: Discharge Summary Assessment (RN) Last Done: 03/22/23 14:22
== END 2023-03-22 15:41 | disposition home or self-care (01) | DRG 641 ==
LOC: ED 14:12 → SUATTDRO 17:28 → 2N 17:28